=== PATIENT | male | born 1940 | race Caucasian/White ===

== ENCOUNTER 2016-07-04 10:19 | Emergency (ER) | payer OTHER, BC ==
[~2016-07-04] VITALS: Ht 185.4 cm; Wt 96.6 kg
[2016-07-04 10:24] VITALS: TEMP 36.8; Ht 185.4 cm; Wt 96.6 kg
[2016-07-04] MEDS ORDERED: SODIUM CHLORIDE 0.9% 1000ML 1,000 ML IV STA (10:37)
[2016-07-04] MEDS ORDERED: SODIUM CHLORIDE 0.9% 500ML 500 ML IV STA (10:37)
--- NOTE | 2016-07-04 10:46 | EMERGENCY ROOM VISIT NOTE ---
History Report prepared by Lucy: Brandon Clifton Under the Supervision of: Dr. Elise Piedra M.D. First contact with patient: 10:34 Chief Complaint: SYNCOPE (NEAR SYNCOPE) Stated Complaint: SLEEPINESS, FAINTING History of Present Illness The patient is a 75 year old male who presents to the Emergency Room following a syncopal episode that occurred last night, several hours prior to arrival. The patient states that he was fasting for a tooth extraction that was to take place today. 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 He is still experiencing pain from the tooth. He notes that prior to the syncopal episode lat night he was seated at his dining room table feeling "miserable" due to his tooth pain. When he stood up he did not make it out of the dining room before falling to the floor. His notes that she found the patient seated against the wall. He denies any traumatic impact to his head. The patient is currently taking Ibuprofen and Tylenol for his pain. He is on Aspirin chronically as a blood thinner. 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 A total of 10 systems reviewed and were otherwise negative. Past Medical & Surgical Medical Problems: (1) Psoriasis Hypertension Hypercholesterolemia Family History Hypertension Social History Smoking Status: Never Smoker Drug Use: none Marital Status: Housing Status: lives with significant other Occupation Status: retired Current/Historical Medications Scheduled Aspirin (Aspir-81), 1 TAB PO DAILY Cholecalciferol (Vitamin D3), 1 TAB PO DAILY Coenzyme Q10 (Ubidecarenone) (Co Q-10), 150 MG PO DAILY Fenofibrate (Tricor), 48 MG PO DAILY Levothyroxine Sodium (Levothyroxine Sodium), 1 TAB PO DAILY Melatonin (Kp Melatonin), 1 TAB PO HS Methylcellulose (Laxative) (Citrucel), 1 TAB PO BID Polyethylene Glycol 3350 (Miralax), 17 GM PO DAILY Ramipril (Ramipril), 1 CAP PO DAILY Allergies Coded Allergies: Cephalexin (Unverified Allergy, Severe, ., 07/04/16) Physical Exam Vital Signs Date Time Temp Pulse Resp B/P Pulse Ox O2 Delivery O2 Flow Rate FiO2 07/04/16 13:02 62 16 145/83 96 07/04/16 11:33 47 07/04/16 11:29 52 16 139/71 98 Room Air 57 153/71 63 147/65 07/04/16 10:24 36.8 58 20 161/77 96 Room Air Physical Exam Vital signs reviewed. General: Well-appearing elderly, in no significant distress. HEENT: No scleral icterus, PERRLA, neck supple. Atraumatic. Dry mucous membranes. Cardiovascular: Regular rate and rhythm, no extra sounds. Pulmonary: Clear to auscultation bilaterally, normal work of breathing. Abdomen: Soft, nontender, nondistended, positive bowel sounds. Musculoskeletal: Atraumatic, no peripheral edema. Neurologic: Patient awake alert and oriented x 3, full strength in all 4 extremities. Cranial nerves 2 through 12 grossly intact. Skin: Warm, dry, no rash Medical Decision & Procedures ER Provider Diagnostic Interpretation: Radiology results as stated below per my review and radiologist interpretation: CHEST ONE VIEW PORTABLE CLINICAL HISTORY: syncope SLEEPINESS COMPARISON STUDY: No previous studies for comparison. FINDINGS: The chest has an emphysematous configuration. The heart is at the upper limits of normal in size. There is no failure. There is no focal pulmonary consolidation.[ No pleural effusions are visualized. IMPRESSION: No active disease in the chest. Electronically signed by: Popeye Goodman M.D. 07/04/2016 11:13 AM Dictated Date/Time: 07/04/2016 11:13 AM Laboratory Results 07/04/16 11:13 Red Blood Count 4.85, Mean Corpuscular Volume 92.2, Mean Corpuscular Hemoglobin 30.3, Mean Corpuscular Hemoglobin Concent 32.9, Mean Platelet Volume 12.2, Neutrophils (%) (Auto) 68.5, Lymphocytes (%) (Auto) 15.8, Monocytes (%) (Auto) 13.7, Eosinophils (%) (Auto) 1.6, Basophils (%) (Auto) 0.2, Neutrophils # (Auto ) 6.47, Lymphocytes # (Auto) 1.49, Monocytes # (Auto) 1.29, Eosinophils # (Auto ) 0.15, Basophils # (Auto) 0.02 07/04/16 11:13 Test 07/04/16 11:13 07/04/16 11:18 White Blood Count 9.44 K/uL (4.8-10.8) Red Blood Count 4.85 M/uL (4.7-6.1) Hemoglobin 14.7 g/dL (14.0-18.0) Hematocrit 44.7 % (42-52) Mean Corpuscular Volume 92.2 fL (80-100) Mean Corpuscular Hemoglobin 30.3 pg (25-34) Mean Corpuscular Hemoglobin Concent 32.9 g/dl (32-36) Platelet Count 168 K/uL (130-400) Mean Platelet Volume 12.2 fL (7.4-10.4) Neutrophils (%) (Auto) 68.5 % Lymphocytes (%) (Auto) 15.8 % Monocytes (%) (Auto) 13.7 % Eosinophils (%) (Auto) 1.6 % Basophils (%) (Auto) 0.2 % Neutrophils # (Auto) 6.47 K/uL (1.4-6.5) Lymphocytes # (Auto) 1.49 K/uL (1.2-3.4) Monocytes # (Auto) 1.29 K/uL (0.11-0.59) Eosinophils # (Auto) 0.15 K/uL (0-0.5) Basophils # (Auto) 0.02 K/uL (0-0.2) RDW Standard Deviation 46.4 fL (36.4-46.3) RDW Coefficient of Variation 13.9 % (11.5-14.5) Immature Granulocyte % (Auto) 0.2 % Immature Granulocyte # (Auto) 0.02 K/uL (0.00-0.02) Anion Gap 7.0 mmol/L (3-11) Est Creatinine Clear Calc Drug Dose 47.3 ml/min Estimated GFR () 47.5 Estimated GFR (Non- 40.9 BUN/Creatinine Ratio 17.6 (10-20) Calcium Level 8.6 mg/dl (8.5-10.1) Magnesium Level 2.4 mg/dl (1.8-2.4) Total Bilirubin 1.0 mg/dl (0.2-1) Direct Bilirubin 0.2 mg/dl (0-0.2) Aspartate Amino Transf (AST/SGOT) 27 U/L (15-37) Alanine Aminotransferase (ALT/SGPT) 29 U/L (12-78) Alkaline Phosphatase 48 U/L (45-117) Total Creatine Kinase 576 U/L (39-308) Creatine Kinase MB 3.2 ng/ml (0.5-3.6) Creatine Kinase MB Ratio 0.6 (0-3.0) Total Protein 6.7 gm/dl (6.4-8.2) Albumin 3.5 gm/dl (3.4-5.0) Bedside Troponin I 0.040 ng/ml (0-0.045) Laboratory results per my review. Medications Administered Medications (Trade) Dose Ordered Sig/Luis Alberto Route Start Time Stop Time Status Last Admin Dose Admin Sodium Chloride 500 ml @ 999 mls/hr Q31M STAT IV 07/04/16 10:37 07/04/16 11:07 DC 07/04/16 11:20 999 MLS/HR Sodium Chloride (Nss 1000ml) 1,000 ml @ 150 mls/hr Q6H40M STAT IV 07/04/16 10:37 07/04/16 13:33 DC 07/04/16 11:20 150 MLS/HR ECG Indication: syncope Rate (beats per minute): 53 Rhythm: sinus bradycardia Findings: no acute ischemic change, no ectopy ED Course 1037: Past medical records reviewed. The patient was evaluated in room C7. A complete history and physical examination was performed. 1038: Ordered Sodium Chloride 1000 mL @ 150 mL/hr IV, Sodium Chloride 500 mL @ 999 mL/hr IV. 1225: Upon reevaluation, the patient appeared to have improvement of his symptoms. I discussed findings with him. He verbalized agreement of the treatment plan. The patient was discharged home. Medical Decision The patient's history was concerning for syncope. Differential diagnosis: Etiologies such as vasovagal event, infection, hypoglycemia, electrolyte abnormalities, cardiac sources, intracerebral event, toxicologic, neurologic, as well as others were entertained. This patient was evaluated and appeared to be in no significant distress. IV access was obtained and laboratory work was drawn. The patient was placed on the teletypesetter monitor and found to be in a normal sinus rhythm. He was hydrated with normal saline solution. Orthostatics are negative. Laboratory work reveals a stable H&H. Patient has some chronic renal insufficiency. Chest x- ray is clear, EKG reveals a normal sinus rhythm without acute ischemia. Patient will return to the ER for worsening of symptoms or any medical concerns. Impression Primary Impression: Syncope Scribe Attestation The scribe's documentation has been prepared under my direction and personally reviewed by me in its entirety. I confirm that the note above accurately reflects all work, treatment, procedures, and medical decision making performed by me. Departure Information Dispostion Home / Self-Care Referrals No Doctor, Assigned (PCP) Forms HOME CARE DOCUMENTATION FORM, IMPORTANT VISIT INFORMATION Patient Instructions My [facility] Additional Instructions Diagnosis: Orthostatic syncope Drink plenty of clear fluids. Resume your diet as tolerated. Contact Dr. Aguiar to reschedule your dental work. Return to the ER for worsening of symptoms or any medical concerns.
[2016-07-04] MEDS ORDERED: CHOL1000 PO (10:52)
[2016-07-04] MEDS ORDERED: ASPI-232 PO (10:52)
[2016-07-04] MEDS ORDERED: LEVO88TA3 PO (10:52)
[2016-07-04] MEDS ORDERED: MELA1TAB5 PO (10:52)
[2016-07-04] MEDS ORDERED: FENO48TA9 PO (10:52)
[2016-07-04] MEDS ORDERED: RAMI10CA PO (10:52)
[2016-07-04] MEDS ORDERED: METH500T3 PO (10:52)
[2016-07-04] MEDS ORDERED: COEN150C PO (10:52)
[2016-07-04] MEDS ORDERED: POLY335019 PO (10:52)
--- NOTE | 2016-07-04 11:15 | DIAGNOSTIC IMAGING REPORT ---
CHEST ONE VIEW PORTABLE CLINICAL HISTORY: syncope SLEEPINESS COMPARISON STUDY: No previous studies for comparison. FINDINGS: The chest has an emphysematous configuration. The heart is at the upper limits of normal in size. There is no failure. There is no focal pulmonary consolidation.[ No pleural effusions are visualized. IMPRESSION: No active disease in the chest. Electronically signed by: Popeye Goodman M.D. 07/04/2016 11:13 AM Dictated Date/Time: 07/04/2016 11:13 AM
[2016-07-04 11:37] LABS: BASO % 0.2 %; BASO ABS # 0.02 K/uL (0-0.2); COMPLETE YES; EOS % 1.6 %; HEMATOCRIT 44.7 % (42-52); IG% 0.2 %; LYMPH % 15.8 %; LYMPH ABS # 1.49 K/uL (1.2-3.4); MEAN CELL VOLUME 92.2 fL (80-100); MEAN CORPUSCULAR HEMOGLOBIN 30.3 pg (25-34); MEAN CORPUSCULAR HGB CONC 32.9 g/dl (32-36); MEAN PLATELET VOLUME 12.2 fL (7.4-10.4); MONO % 13.7 %; NEUT % 68.5 %; PLATELET COUNT 168 K/uL (130-400); RED BLOOD COUNT 4.85 M/uL (4.7-6.1); WHITE BLOOD COUNT 9.44 K/uL (4.8-10.8)
[2016-07-04 12:05] LABS: BUN/CREATININE RATIO 17.6 (10-20); CALCIUM 8.6 mg/dl (8.5-10.1); CREATININE 1.6 mg/dl (0.60-1.40); MAGNESIUM 2.4 mg/dl (1.8-2.4); POTASSIUM 4.2 mmol/L (3.5-5.1)
[2016-07-04 12:11] LABS: CKMB/CK RATIO 0.6 (0-3.0)
[2016-07-04 13:02] VITALS: BP 145/83; PULSE 62; O2SAT 96
== END 2016-07-04 13:05 | disposition home or self-care (01) ==
LOC: C.EDB 10:21 → C.EDC 13:05
DX: R55 Syncope and collapse (principal); Z79.82 Long term (current) use of aspirin; L40.9 Psoriasis, unspecified; Z82.49 Family history of ischemic heart disease and other diseases of the circulatory system; Z79.899 Other long term (current) drug therapy

== ENCOUNTER 2021-08-19 01:59 | Inpatient (IN) ==
[2021-08-19] MEDS ORDERED: SODIUM CHLORIDE 0.9% 500 ML IV SCH (02:30)
[2021-08-19 02:48] LABS: Basophils # (auto) 0.02 K/uL (0-0.2); Basophils % (auto) 0.2 %; Eosinophils # (auto) 0.05 K/uL (0-0.5); Eosinophils % (auto) 0.5 %; Hematocrit (blood only) 40.9 % (42-52); Immature Granulocytes # (auto) 0.03 K/uL (0.00-0.02); Immature Granulocytes % (auto) 0.3 %; Lymphocytes # (auto) 0.88 K/uL (1.2-3.4); Lymphocytes % (auto) 8.2 %; Mean Corpuscular Hemoglobin 32.1 pg (25-34); Mean Corpuscular Hgb Conc 34.2 g/dL (32-36); Mean Corpuscular Volume 93.8 fL (80-100); Mean Platelet Volume 12.9 fL (7.4-10.4); Monocytes # (auto) 0.99 K/uL (0.11-0.59); Monocytes % (auto) 9.2 %; Neutrophils # (auto) 8.75 K/uL (1.4-6.5); Neutrophils % (auto) 81.6 %; Platelet Count 168 K/uL (130-400); RDW Coefficient of Variation 13.7 % (11.5-14.5); RDW Standard Deviation 47.2 fL (36.4-46.3); Red Blood Count 4.36 M/uL (4.7-6.1); White Blood Count 10.72 K/uL (4.8-10.8)
[2021-08-19 03:12] LABS: Albumin Globulin Ratio 1.5 (0.9-2); BUN Creatinine Ratio 17.6 (10-20); Bilirubin,Total 0.8 mg/dl (0.2-1.0); Calcium 9.2 mg/dl (8.5-10.1); Creatinine Clr Calc Pharmacy 57.7 ml/min; Est GFR (African American) 65.5 ml/min; Est GFR (Non-African American) 56.5 ml/min; Globulin 2.6 gm/dl (2.5-4.0); Magnesium 2.1 mg/dl (1.7-2.4); Total Protein 6.6 gm/dl (6.0-8.3)
[2021-08-19 03:16] LABS: Thyroid Stimulating Hormone 9.011 uIu/ml (0.300-4.500)
[2021-08-19 03:28] LABS: Lyme Ab IgG w/WB Rflx Negative (Negative); Lyme Ab IgM w/WB Rflx Negative (Negative)
--- NOTE | 2021-08-19 03:34 | Emergency Department Note ---
History of Present Illness General Chief complaint: Syncope Stated complaint: Syncope, Vomiting Time Seen by Provider: 08/19/21 02:05 History of Present Illness This 80-year-old presents to the ER complaining of chest discomfort and not feeling well nausea vomiting and syncope Location: Generalized Quality: Not feeling well Severity: moderate Duration: tonight Timing: tonight Context: Patient passed out and family called EMS Modifying factors: better with rest; worse with activity Patient states he felt fine all day. He got up to go the bathroom was on the toilet felt nauseous vomited and passed out. He said intermittent chest pain and not feeling well since. Patient denies abdominal pain, fevers, flulike illness, prior heart disease Home Medications Medication Instructions Recorded Confirmed Type cholecalciferol (vitamin D3) 25 2,000 unit PO QAM 09/23/18 08/19/21 History mcg (1,000 unit) capsule (Vitamin D3) coenzyme Q10 100 mg capsule 100 mg PO QAM 09/23/18 08/19/21 History (CoQ-10) melatonin 3 mg tablet 3 mg PO HS 09/23/18 08/19/21 History ramipril 10 mg capsule 10 mg PO QAM cap 04/20/19 08/19/21 History cyanocobalamin (vitamin B-12) 1,000 mcg PO QAM tab 10/28/19 08/19/21 History 1,000 mcg tablet (Vitamin B-12) ibuprofen 200 mg tablet (Motrin IB) 400 mg PO BID PRN tab 10/28/19 08/19/21 History albuterol sulfate 90 mcg/actuation 2 puff INHALATION Q4 PRN 08/19/21 08/19/21 History aerosol inhaler diclofenac sodium 1 % topical gel 2 g TOPICAL BID 08/19/21 08/19/21 History fenofibrate nanocrystallized 48 mg 48 mg PO DAILY 08/19/21 08/19/21 History tablet levothyroxine 100 mcg tablet 100 mcg PO DAILYBB 08/19/21 08/19/21 History magnesium 100 mg tablet 100 mg PO DAILY 08/19/21 08/19/21 History phenazopyridine 95 mg tablet 95 mg PO UD 08/19/21 08/19/21 History triamcinolone acetonide 0.1 % 1 applic TOPICAL BID PRN 08/19/21 08/19/21 History topical cream turmeric root extract 1,053 mg 1,076 mg PO DAILY 08/19/21 08/19/21 History tablet Allergies Allergy/AdvReac Type Severity Reaction Status Date / Time cephalexin Allergy Severe Swollen Verified 08/19/21 02:29 Lips tamsulosin [From Flomax] Allergy Severe Swollen Verified 08/19/21 02:29 Lip alfuzosin Allergy Unknown LIPS Verified 08/19/21 06:04 SWELLED Past Med/Surg History Medical History Chronic obstructive pulmonary disease "MILD" Hx of chronic kidney disease Hyperlipemia Hypertension Hypothyroidism Mitral valve prolapse Mild, posterior, per 2015 echo. Osteoarthritis of both knees Prostate cancer Diagnosed 07/06/18 - [facility] 4+4, 4+3 Psoriasis Psoriatic arthritis Sleep apnea DOES NOT USE ANY DEVICE Surgical History History of cardiac catheterization 2004 - nonobstructive CAD History of vasectomy 1979 Hx of nasal septoplasty Family History Mother , Passed age 89 of Alzheimers Disease No problems noted. Father , Passed age 67 of CHF No problems noted. Brother , Passed age 77 of of complications from quadraplegia No problems noted. Daughter No problems noted. Daughter No problems noted. Son No problems noted. 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 Other Information That Helps Us Care for You: No Feels Safe at Home: Yes Safety Concerns: Feels Safe At This Time Childhood Exposure to Second-Hand Smoke: No Diet Comment: Avoids wheat caffeine: Yes (Rare Occasoinal - tries to avoid ) during the past year weight has: decreased > 10 lbs Dental Care, Regularly: Yes Assistive Devices: None Review of Systems A total of 10 systems reviewed and were otherwise negative Physical Exam Vital Signs Vital Signs - 24 hr 08/19/21 02:30 08/19/21 03:00 Temperature 37.1 C 37.2 C Temperature Source Oral Oral Pulse Rate 70 Pulse Rate [Apical] 70 Pulse Rhythm Regular Pulse Rhythm [Apical] Regular Pulse Strength Normal Pulse Strength [Apical] Normal Respiratory Rate 18 18 Respiratory Effort / Characteristics Non-Labored Spontaneous Non-Labored Spontaneous Respiratory Depth Normal Normal Respiratory Pattern Regular Regular Blood Pressure 150/82 H Blood Pressure [Right Arm] 150/82 H Blood Pressure Mean 104 Blood Pressure Mean [Right Arm] 104 Blood Pressure Position Lying Blood Pressure Position [Right Arm] Lying Pulse Oximetry 97 97 Oxygen Delivery Method Room Air Room Air Sepsis Recent Fever Within 48 Hours No Sepsis New/Unexplained Change in Mental Status No Sepsis Action Taken by Nursing No Action Required VITALS: Vitals are noted on the nurse's note and reviewed by myself. Vital signs bradycardic. GENERAL: Elderly male pale appearing SKIN: The skin was without rashes, erythema, edema, or bruising. There is no tenting of the skin. Capillary reflex less than 2 seconds. HEAD: Normocephalic atraumatic. EARS: External auditory canals clear, EYES: Pupils equal round and reactive to light and accommodation. Conjunctivae without injection, sclerae without icterus. Extraocular movements intact. NOSE: Patent, turbinates without inflammation or discharge. MOUTH: Mucous membranes moist. Pharynx without erythema or exudate. Uvula midline. Airway patent. Tongue does not deviate. NECK: Supple without nuchal rigidity. No lymphadenopathy. No thyromegaly. Cervical spine is nontender. No JVD. HEART: Bradycardic rate and rhythm LUNGS: Clear to auscultation bilaterally without wheezes, rales or rhonchi. No retractions or accessory muscle use. ABDOMEN: Positive bowel sounds x 4. Normal tympanic percussion. Soft, nontender, without masses or organomegaly. Barcenas sign negative. No guarding or rebound tenderness. No CVA tenderness MUSCULOSKELETAL: No muscle atrophy, erythema, or edema noted. NEURO: Patient was alert and oriented to person place and time. Normal sensation to light and sharp touch. No focal neurological deficits. Course Administered Medications Cyanocobalamin (Cyanocobalamin (B-12) 500 Mcg Tablet) 1,000 mcg PO [facility] Stop: 09/18/21 08:59 Last Admin: 08/19/21 09:51 Dose: 1,000 mcg Documented by: [id number] Diclofenac Sodium (Diclofenac Sod 1% Gel 100 Gm Tube) 2 gm EXT BID [facility]; Protocol Stop: 09/18/21 08:59 Last Admin: 08/19/21 21:48 Dose: 2 gm Documented by: [id number] Admin: 08/19/21 09:53 Dose: 2 gm Documented by: [id number] Enoxaparin Sodium (Enoxaparin Inj 40 Mg/0.4 Ml Syr) 40 mg SQ QAM [facility] Stop: 09/18/21 08:59 Last Admin: 08/19/21 09:52 Dose: 40 mg Documented by: [id number] Fenofibrate (Fenofibrate Nanocrystallized 48 Mg Tablet) 48 mg PO DAILY [facility] Stop: 09/18/21 08:59 Last Admin: 08/19/21 09:51 Dose: 48 mg Documented by: [id number] Levothyroxine Sodium (Levothyroxine Sodium 100 Mcg Tablet) [facility] Stop: 09/18/21 06:29 Last Admin: 08/19/21 06:25 Dose: 100 mcg Documented by: [id number] Melatonin (Melatonin 3 Mg Tab) 3 mg PO [facility] Stop: 09/18/21 20:59 Last Admin: 08/19/21 21:47 Dose: 3 mg Documented by: [id number] Morphine Sulfate (Morphine Sulfate 2 Mg/Ml Carp) 2 mg IV Q3H PRN PRN Reason: Pain Stop: 09/02/21 05:56 Last Admin: 08/19/21 12:18 Dose: 2 mg Documented by: [id number] Admin: 08/19/21 06:24 Dose: 2 mg Documented by: [id number] Tramadol HCl (Tramadol Hcl 50 Mg Tablet) 25 - 50 mg PO Q4H PRN PRN Reason: Pain Stop: 09/18/21 05:56 Last Admin: 08/19/21 13:40 Dose: 50 mg Documented by: [id number] Discontinued Medications Sodium Chloride (Nss) 500 mls @ 999 mls/hr IV .Q31M [facility] Stop: 08/19/21 03:00 Last Infusion: 08/19/21 03:17 Dose: 0 mls/hr Documented by: [id number] Admin: 08/19/21 02:45 Dose: 999 mls/hr Documented by: [id number] Lactated Ringer's (Lr) 1,000 mls @ 60 mls/hr IV .[id number] STA Stop: 08/19/21 20:37 Last Infusion: 08/19/21 23:45 Dose: 0 mls/hr Documented by: [id number] Admin: 08/19/21 06:25 Dose: 60 mls/hr Documented by: [id number] Ioversol (Optiray 320 125ml) 120 ml IV ONCE ONE Stop: 08/19/21 04:47 Last Admin: 08/19/21 04:39 Dose: 120 ml Documented by: [id number] Medical Decision Making Medical Records Attestation: I reviewed the patient's medical records. Home Medications Current Medication List: was personally reviewed by me Laboratory Data Attestation: I reviewed the patient's lab results. Result diagrams: 08/19/21 02:30 08/19/21 02:30 Lab Results 08/19/21 08/19/21 08/19/21 Range/Units 02:30 02:30 02:30 WBC 10.72 (4.8-10.8) K/uL RBC 4.36 L (4.7-6.1) M/uL Hgb 14.0 (14.0-18.0) g/dL Hct 40.9 L (42-52) % MCV 93.8 (80-100) fL MCH 32.1 (25-34) pg MCHC 34.2 (32-36) g/dL RDW Std Deviation 47.2 H (36.4-46.3) fL RDW Coeff of Asha 13.7 (11.5-14.5) % Plt Count 168 (130-400) K/uL MPV 12.9 H (7.4-10.4) fL Immature Gran % (Auto) 0.3 % Neut % (Auto) 81.6 % Lymph % (Auto) 8.2 % Bowie % (Auto) 9.2 % Eos % (Auto) 0.5 % Baso % (Auto) 0.2 % Neut # (Auto) 8.75 H (1.4-6.5) K/uL Lymph # (Auto) 0.88 L (1.2-3.4) K/uL Bowie # (Auto) 0.99 H (0.11-0.59) K/uL Eos # (Auto) 0.05 (0-0.5) K/uL Baso # (Auto) 0.02 (0-0.2) K/uL Immature Gran # (Auto) 0.03 H (0.00-0.02) K/uL Sodium 140 (136-145) mmol/L Potassium 4.0 (3.5-5.1) mmol/L Chloride 106 (98-107) mmol/L Carbon Dioxide 25 (21-32) mmol/L Anion Gap 9 (3-11) BUN 21 (6-23) mg/dl Creatinine 1.19 (0.6-1.4) mg/dl Est Cr Clr Drug Dosing 57.7 ml/min Est GFR ( Amer) 65.5 ml/min Est GFR (Non-Af Amer) 56.5 ml/min BUN/Creatinine Ratio 17.6 (10-20) Glucose 125 H (70-99(Fasting)) mg/dl Calcium 9.2 (8.5-10.1) mg/dl Magnesium 2.1 (1.7-2.4) mg/dl Total Bilirubin 0.8 (0.2-1.0) mg/dl AST 21 (13-39) U/L ALT 18 (7-52) U/L Alkaline Phosphatase 67 (34-104) U/L Total Creatine Kinase 251 H (30-223) U/L Troponin I High Sens 21.0 H (0-20) pg/ml Total Protein 6.6 (6.0-8.3) gm/dl Albumin 4.0 (3.4-5.0) gm/dl Globulin 2.6 (2.5-4.0) gm/dl Albumin/Globulin Ratio 1.5 (0.9-2) TSH 9.011 H (0.300-4.500) uIu/ml Free T4 0.89 (0.61-1.60) ng/dl Lyme Disease IgG Ab (Negative) Lyme Disease IgM Ab (Negative) SARS-CoV-2, RNA, NAAT (NEGATIVE) 08/19/21 08/19/21 Range/Units 02:30 02:30 WBC (4.8-10.8) K/uL RBC (4.7-6.1) M/uL Hgb (14.0-18.0) g/dL Hct (42-52) % MCV (80-100) fL MCH (25-34) pg MCHC (32-36) g/dL RDW Std Deviation (36.4-46.3) fL RDW Coeff of Asha (11.5-14.5) % Plt Count (130-400) K/uL MPV (7.4-10.4) fL Immature Gran % (Auto) % Neut % (Auto) % Lymph % (Auto) % Bowie % (Auto) % Eos % (Auto) % Baso % (Auto) % Neut # (Auto) (1.4-6.5) K/uL Lymph # (Auto) (1.2-3.4) K/uL Bowie # (Auto) (0.11-0.59) K/uL Eos # (Auto) (0-0.5) K/uL Baso # (Auto) (0-0.2) K/uL Immature Gran # (Auto) (0.00-0.02) K/uL Sodium (136-145) mmol/L Potassium (3.5-5.1) mmol/L Chloride (98-107) mmol/L Carbon Dioxide (21-32) mmol/L Anion Gap (3-11) BUN (6-23) mg/dl Creatinine (0.6-1.4) mg/dl Est Cr Clr Drug Dosing ml/min Est GFR ( Amer) ml/min Est GFR (Non-Af Amer) ml/min BUN/Creatinine Ratio (10-20) Glucose (70-99(Fasting)) mg/dl Calcium (8.5-10.1) mg/dl Magnesium (1.7-2.4) mg/dl Total Bilirubin (0.2-1.0) mg/dl AST (13-39) U/L ALT (7-52) U/L Alkaline Phosphatase (34-104) U/L Total Creatine Kinase (30-223) U/L Troponin I High Sens (0-20) pg/ml Total Protein (6.0-8.3) gm/dl Albumin (3.4-5.0) gm/dl Globulin (2.5-4.0) gm/dl Albumin/Globulin Ratio (0.9-2) TSH (0.300-4.500) uIu/ml Free T4 (0.61-1.60) ng/dl Lyme Disease IgG Ab Negative (Negative) Lyme Disease IgM Ab Negative (Negative) SARS-CoV-2, RNA, NAAT NEGATIVE (NEGATIVE) Imaging Data Attestation: I personally reviewed and interpreted this imaging study as follows: MDM Narrative Prior records/ancillary studies reviewed. Triage Nursing notes reviewed. Additional history obtained from family. The patient's history was concerning for syncope. Differential diagnosis: Etiologies such as vasovagal event, infection, hypoglycemia, electrolyte abnor malities, cardiac sources, intracerebral event, toxicologic, neurologic, as well as others were entertained. Physical examination: As above ER treatment provided: IV hydration with normal saline On reassessment the patient felt better. An order was placed for continuous cardiac monitoring. The monitor shows a rate of 30-80 with a heart block sinus rhythm. Diagnostics interpretation by me: ECG: Ordered for chest pain EKG: Normal QRS, type II heart block. Left axis deviation, MT progression until dropped beat consistent with type II heart block per my interpretation. The labs revealed minimally elevated troponin. Imaging studies: Chest x-ray with no acute consolidation, pneumothorax or free air per my interpretation [facility] Patient: BROCK MCINTOSH (Male) : 36 Status: ER Date: 08/19/21 04:46 Room #: History:J SYNCOPE , NAUSEA , CHEST PAIN , EVAL FOR PE , 120 ML OPTIRAY 320 Slices: [id number] Priors: Tech: Reno Everett @ [id number] Exams: CT HEAD, CT C SPINE, CTA CHEST C Contrast: IV Amt: 120 ML Accession Numbers: [id number] Referring Physician: REFERRED SELF Preliminary Findings Only See Final Report For Complete Findings CT HEAD: No acute intracranial abnormality. Senescent changes. If there is further concern, consider MRI. CT C SPINE: No evidence of acutely displaced fracture or dislocation within the cervical spine. Degenerative changes. If there is further concern, consider MRI. CTA CHEST: Mildly limited evaluation due to motion artifact. No evidence of pulmonary emboli within the pulmonary flow tract or proximal branches. Dependent atelectasis. No acute findings along the aorta. Radiologist: Ismael Lancaster MD Consultation: A consultation was placed with cardiology, Dr. Funez. The case was discussed and diagnostics were reviewed. He recommends medical admission and he will evaluate for possible pacemaker in the morning. Hospitalist was consulted. The patient was evaluated in the ER for further treatment. This appears to be consistent with symptomatic heart block. Patient's heart rate when he initially arrived was in the 30s up to the high 50s. He was pale and not feeling well. He has having chest pain with his heart rate was in the 30s. He improved with some IV fluids and the heart rate was in the 50s. Her morning was concerning for a type II heart block. Pacer pads were placed. Medicine and cardiology were consulted. Patient will be admitted. By the evaluation outlined above emergent etiologies such as infection, hypoglycemia, electrolyte abnormalities, intracerebral event, toxicologic, neurologic,as well as others were deemed relatively unlikely. The pt informed about the findings as listed above. All questions were answered and pleased with the treatment. The chart was completed utilizing [employer] Speech voice recognition software. Grammatical errors, random word insertions, pronoun errors, and incomplete sentences are an occassional consequence of this system due to software limitations, ambient noise, and hardware issues. Any formal questions or concerns about the content, text, or information contained within the body of this dictation should be directly addressed to the physician assistant project engineer for c larification. Impression & Plan Symptomatic bradycardia, HB (heart block), Syncope Discharge Plan Visit Data Chief Complaint: Syncope Stated Complaint: Syncope, Vomiting ED Provider: Silvino Pinedo ED Midlevel Provider: Cheryl Lr Discharge Problem: Symptomatic bradycardia, HB (heart block), Syncope Patient Disposition: Admitted As Inpatient Condition: Fair Discharge Instructions Interventions: ED Discharge Assessment Last Done: 08/19/21 05:36
--- NOTE | 2021-08-19 03:38 | History & Physical Report ---
Date of Service August 19, 2021 Assessment & Plan (1) Symptomatic bradycardia: Plan: Pleuritic chest pain with troponin elevation rule out PE hx nonocclusive CAD COPD, not in acute exacerbation hypertension, slight elevated hyperlipidemia on statin Rx hypothyroidism, euthyroid as of today's TSH BPH/ prostate cancer status post radiation. Hyperglycemia rule out DM Cardiology consult Re: Symptomatic bradycardia ER provider already in touch with Dr. Funez who recommends ICU monitoring and TTE. N.p.o. until patient evaluated by cardiology in anticipation of any procedure. External pacer pads on, pace for symptomatic bradycardia CT chest PE study Check hemoglobin A1c DVT prophylaxis. Lovenox subcu Full code Patient son requesting updates from providers. Mr. Jesus Tejeda, contact #[phone]. Text document was generated using Qraved voice recognition software. It may contain grammatical or spelling errors. Kindly contact undersigned for clarification of any documentation item in question. History of Present Illness Chief Complaint: Syncope Primary Care Provider: Tomas Santoyo, History obtained from patient, family, and records. Medical history significant for nonocclusive CAD, COPD, hypertension, hyperlipidemia, hypothyroidism, BPH, prostate cancer status post radiation. Patient woke up after midnight having the urge to move his bowels. Diarrhea symptoms attributed to [place] food dinner last night. Patient felt nauseous and lightheaded while on the commode. No unusual straining. Subsequent unwitnessed syncopal event. No tongue biting, no urinary incontinence. Thud from patient's room heard by patient's son who was visiting from [place], [place]. Patient found by son on the bathroom floor vomiting. Patient denies headache, belly pain. EMS alerted by son. Patient noted sharp pleuritic pain with some shortness of breath on the way to the hospital. Heart rate 30s and second-degree AV block on EKG at the ER as per ED provider. Medical History as above Outpatient stress echo was done for presyncopal episodes while walking last March 2021. Negative for inducible ischemia. EF 55 to 59%. Concentric LVH. Mild aortic valve sclerosis, mild MR. 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 Allergies Allergy/AdvReac Type Severity Reaction Status Date / Time cephalexin Allergy Severe Swollen Verified 08/19/21 02:29 Lips tamsulosin [From Flomax] Allergy Severe Swollen Verified 08/19/21 02:29 Lip alfuzosin Allergy Unknown LIPS Verified 08/19/21 06:04 SWELLED Home Medications Medication Instructions Recorded Confirmed Type cholecalciferol (vitamin D3) 25 2,000 unit PO QAM 09/23/18 08/19/21 History mcg (1,000 unit) capsule (Vitamin D3) coenzyme Q10 100 mg capsule 100 mg PO QAM 09/23/18 08/19/21 History (CoQ-10) melatonin 3 mg tablet 3 mg PO HS 09/23/18 08/19/21 History ramipril 10 mg capsule 10 mg PO QAM cap 04/20/19 08/19/21 History cyanocobalamin (vitamin B-12) 1,000 mcg PO QAM tab 10/28/19 08/19/21 History 1,000 mcg tablet (Vitamin B-12) ibuprofen 200 mg tablet (Motrin IB) 400 mg PO BID PRN tab 10/28/19 08/19/21 History albuterol sulfate 90 mcg/actuation 2 puff INHALATION Q4 PRN 08/19/21 08/19/21 History aerosol inhaler diclofenac sodium 1 % topical gel 2 g TOPICAL BID 08/19/21 08/19/21 History fenofibrate nanocrystallized 48 mg 48 mg PO DAILY 08/19/21 08/19/21 History tablet levothyroxine 100 mcg tablet 100 mcg PO DAILYBB 08/19/21 08/19/21 History magnesium 100 mg tablet 100 mg PO DAILY 08/19/21 08/19/21 History phenazopyridine 95 mg tablet 95 mg PO UD 08/19/21 08/19/21 History triamcinolone acetonide 0.1 % 1 applic TOPICAL BID PRN 08/19/21 08/19/21 History topical cream turmeric root extract 1,053 mg 1,076 mg PO DAILY 08/19/21 08/19/21 History tablet Past Med/Surg History Medical History (Updated 08/19/21 @ 06:40 by SOMMER Barraza) Chronic obstructive pulmonary disease "MILD" Hx of chronic kidney disease Hyperlipemia Hypertension Hypothyroidism Mitral valve prolapse Mild, posterior, per 2015 echo. Osteoarthritis of both knees Prostate cancer Diagnosed 07/06/18 - [place] 4+4, 4+3 Psoriasis Psoriatic arthritis Sleep apnea DOES NOT USE ANY DEVICE Surgical History History of cardiac catheterization 2004 - nonobstructive CAD History of vasectomy 1979 Hx of nasal septoplasty Family History Mother , Passed age 89 of Alzheimers Disease No problems noted. Father , Passed age 67 of CHF No problems noted. Brother , Passed age 77 of of complications from quadraplegia No problems noted. Daughter No problems noted. Daughter No problems noted. Son No problems noted. 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 [employer] Other Information That Helps Us Care for You: No Feels Safe at Home: Yes Safety Concerns: Feels Safe At This Time Childhood Exposure to Second-Hand Smoke: No Diet Comment: Avoids wheat caffeine: Yes (Rare Occasoinal - tries to avoid ) during the past year weight has: decreased > 10 lbs Dental Care, Regularly: Yes Assistive Devices: None Review of Systems Review of Systems: As per HPI, all other systems reviewed and negative Physical Exam Physical Exam: GENERAL: Comfortable, slightly anxious, pleasant, no respiratory distress SKIN: Normal color, warm HEENT: [place] palpebral conjunctivae, no ptosis, dry buccal mucosa NECK : Supple, no tenderness CHEST : CTA, no tenderness HEART : Bradycardic, no obvious murmurs ABDOMEN: Some distention, nontender EXTREMITIES : No LE swelling/tenderness, no other conspicuous deformities noted NEUROLOGIC : Coherent, no facial asymmetry, no other gross focality Results & Data Results & Data ([facility]) Vital Signs (Past 12 Hours) Vital Signs Temp Pulse Pulse Resp BP BP Pulse Ox 08/19/21 03:00 37.2 C 70 18 150/82 H 97 08/19/21 02:30 37.1 C 70 18 150/82 H 97 Laboratory Results Laboratory Results WBC 10.72 K/uL (4.8-10.8) 08/19/21 02:30 RBC 4.36 M/uL (4.7-6.1) L 08/19/21 02:30 Hgb 14.0 g/dL (14.0-18.0) 08/19/21 02:30 Hct 40.9 % (42-52) L 08/19/21 02:30 MCV 93.8 fL (80-100) 08/19/21 02:30 MCH 32.1 pg (25-34) 08/19/21 02:30 MCHC 34.2 g/dL (32-36) 08/19/21 02:30 RDW Std Deviation 47.2 fL (36.4-46.3) H 08/19/21 02:30 RDW Coeff of Asha 13.7 % (11.5-14.5) 08/19/21 02:30 Plt Count 168 K/uL (130-400) 08/19/21 02:30 MPV 12.9 fL (7.4-10.4) H 08/19/21 02:30 Immature Gran % (Auto) 0.3 % 08/19/21 02:30 Neut % (Auto) 81.6 % 08/19/21 02:30 Lymph % (Auto) 8.2 % 08/19/21 02:30 [place] % (Auto) 9.2 % 08/19/21 02:30 Eos % (Auto) 0.5 % 08/19/21 02:30 Baso % (Auto) 0.2 % 08/19/21 02:30 Neut # (Auto) 8.75 K/uL (1.4-6.5) H 08/19/21 02:30 Lymph # (Auto) 0.88 K/uL (1.2-3.4) L 08/19/21 02:30 [place] # (Auto) 0.99 K/uL (0.11-0.59) H 08/19/21 02:30 Eos # (Auto) 0.05 K/uL (0-0.5) 08/19/21 02:30 Baso # (Auto) 0.02 K/uL (0-0.2) 08/19/21 02:30 Immature Gran # (Auto) 0.03 K/uL (0.00-0.02) H 08/19/21 02:30 Sodium 140 mmol/L (136-145) 08/19/21 02:30 Potassium 4.0 mmol/L (3.5-5.1) 08/19/21 02:30 Chloride 106 mmol/L (98-107) 08/19/21 02:30 Carbon Dioxide 25 mmol/L (21-32) 08/19/21 02:30 Anion Gap 9 (3-11) 08/19/21 02:30 BUN 21 mg/dl (6-23) 08/19/21 02:30 Creatinine 1.19 mg/dl (0.6-1.4) 08/19/21 02:30 Est Cr Clr Drug Dosing 57.7 ml/min 08/19/21 02:30 Est GFR ( Amer) 65.5 ml/min 08/19/21 02:30 Est GFR (Non-Af Amer) 56.5 ml/min 08/19/21 02:30 BUN/Creatinine Ratio 17.6 (10-20) 08/19/21 02:30 Glucose 125 mg/dl (70-99(Fasting)) H 08/19/21 02:30 Calcium 9.2 mg/dl (8.5-10.1) 08/19/21 02:30 Magnesium 2.1 mg/dl (1.7-2.4) 08/19/21 02:30 Total Bilirubin 0.8 mg/dl (0.2-1.0) 08/19/21 02:30 AST 21 U/L (13-39) 08/19/21 02:30 ALT 18 U/L (7-52) 08/19/21 02:30 Alkaline Phosphatase 67 U/L (34-104) 08/19/21 02:30 Total Creatine Kinase 251 U/L (30-223) H 08/19/21 02:30 Troponin I High Sens 21.0 pg/ml (0-20) H 08/19/21 02:30 Total Protein 6.6 gm/dl (6.0-8.3) 08/19/21 02:30 Albumin 4.0 gm/dl (3.4-5.0) 08/19/21 02:30 Globulin 2.6 gm/dl (2.5-4.0) 08/19/21 02:30 Albumin/Globulin Ratio 1.5 (0.9-2) 08/19/21 02:30 TSH 9.011 uIu/ml (0.300-4.500) H 08/19/21 02:30 Lyme Disease IgG Ab Negative (Negative) 08/19/21 02:30 Lyme Disease IgM Ab Negative (Negative) 08/19/21 02:30 SARS-CoV-2, RNA, NAAT NEGATIVE (NEGATIVE) 08/19/21 02:30 Diagnostic Findings Chest x-ray as per my interpretation: Atelectasis, cardiomegaly, elevated right hemidiaphragm EKG as per my interpretation : Rate 55, sinus bradycardia, LAD, LAFB, ischemia
[2021-08-19 03:49] LABS: T4 Free Thyroxine 0.89 ng/dl (0.61-1.60)
[2021-08-19] MEDS ORDERED: LACTATED RINGER'S 1,000 ML IV STA (03:58)
[2021-08-19] MEDS ORDERED: OPTIRAY 320 125ml IV ONE (04:46)
[2021-08-19] MEDS ORDERED: ICU PROTOCOL FOR HYPERGLYCEMIA PRN (05:57)
[2021-08-19] MEDS ORDERED: traMADol HCL 50 MG TABLET PO PRN (05:57)
[2021-08-19] MEDS ORDERED: PROMETHAZINE HCL 12.5 MG in SODIUM CHLORIDE 0.9% 50 ML IV PRN (05:57)
[2021-08-19] MEDS ORDERED: ACETAMINOPHEN 325 MG TAB PO PRN (05:57)
[2021-08-19] MEDS: MoRPHine SULFATE 2 MG/ML CARP IV PRN ×2 (06:24→12:18)
[2021-08-19] MEDS: LEVOTHYROXINE SODIUM 100 MCG TABLET PO SCH (06:25)
--- NOTE | 2021-08-19 06:33 | Critical Care Consultation ---
Date of Consultation August 19, 2021 Assessment & Plan (1) Symptomatic bradycardia: Impression: 80-year-old male presents to the ICU following syncopal event and was found to be bradycardic with heart rate in the 30s to 40s. He is remained hemodynamically stable but is being admitted to ICU per cardiology request for further monitoring. Neuro - [facility] ICU: Negative Cardiac - Symptomatic bradycardiasecondary to heart block. Unsure of etiology at this time -No severe electrolyte abnormalities. Troponin unremarkable but will trend -EKG without ST elevation -Chest CTA pending -No indication for dopamine or temporary pacing at this time -Defer to cardiology in regards to need for permanent pacemaker -Continuous monitoring on telemetry in ICU for now Respiratory - History of COPDlungs clear to auscultation as of now, no symptoms of respiratory distress -Monitor for now. Continue home nebs -Continuous monitoring pulse ox GI - Heart healthy diet RENAL/LYTES - CKDcreatinine currently at baseline at 1.19. Monitor - Strict I's and O's ENDO - No history of diabetes. ICU hyperglycemic protocol Hypothyroidelevated TSH but normal T4. Continue with Synthroid HEME - H&H stable, monitor routine CBCs ID - No indication for infectious process at this time\\ Lyme negative, COVID-19 negative LINES/IV ACCESS - Peripheral IVs DVT PROPHYLAXIS - SCDs, Lovenox Thank you for allowing us to participate in the care of this patient. Please refer to my attending physician's documentation for any further recommendations. (2) HB (heart block): (3) Syncope: (4) Hypothyroid: (5) Hyperlipidemia: Supervising Physician Co-Signing Physician Notes I was advised to the patient overnight. In the morning I discussed case with Dr. Terrazas and patient is stable for downgrade and transfer out of ICU. History of Present Illness Attending Physician: Torie Ibarra DO History of Present Illness Patient is a 80-year-old female with past medical history of CKD, HTN, hypothyroid, HLD, COPD psoriasis, who presents to the emergency department after having a syncopal event where he passed out on the toilet earlier this evening. Patient stated that he was having a loose stool but was not particularly straining at the time. In the emergency department he was found to be bradycardic with heart rate in the 30s and concern for second-degree AV block. At the time patient was hemodynamically stable and asymptomatic. Cardiology was consulted and did recommend placing the patient in ICU for observation. On arrival to the ICU the patient is alert and oriented and hemodynamically stable. Heart rate appears to be regular in the low 40s. Patient was complaini ng of 2/10 right-sided chest pain which was more associated with movement. he has pending CT head, cervical spine, and CTA chest. Currently he denies any headache or dizziness, recent illness or fevers, tick bites, sore throat, chest pain or palpitations, shortness of breath, abdominal pain, nausea vomiting. He did have 1 episode of diarrhea prior to hospital arrival at the time of syncopal event. Allergies Allergy/AdvReac Type Severity Reaction Status Date / Time cephalexin Allergy Severe Swollen Verified 08/19/21 02:29 Lips tamsulosin [From Flomax] Allergy Severe Swollen Verified 08/19/21 02:29 Lip alfuzosin Allergy Unknown LIPS Verified 08/19/21 06:04 SWELLED Home Medications Medication Instructions Recorded Confirmed Type cholecalciferol (vitamin D3) 25 2,000 unit PO QAM 09/23/18 08/19/21 History mcg (1,000 unit) capsule (Vitamin D3) coenzyme Q10 100 mg capsule 100 mg PO QAM 09/23/18 08/19/21 History (CoQ-10) melatonin 3 mg tablet 3 mg PO HS 09/23/18 08/19/21 History ramipril 10 mg capsule 10 mg PO QAM cap 04/20/19 08/19/21 History cyanocobalamin (vitamin B-12) 1,000 mcg PO QAM tab 10/28/19 08/19/21 History 1,000 mcg tablet (Vitamin B-12) ibuprofen 200 mg tablet (Motrin IB) 400 mg PO BID PRN tab 10/28/19 08/19/21 History albuterol sulfate 90 mcg/actuation 2 puff INHALATION Q4 PRN 08/19/21 08/19/21 History aerosol inhaler diclofenac sodium 1 % topical gel 2 g TOPICAL BID 08/19/21 08/19/21 History fenofibrate nanocrystallized 48 mg 48 mg PO DAILY 08/19/21 08/19/21 History tablet levothyroxine 100 mcg tablet 100 mcg PO DAILYBB 08/19/21 08/19/21 History magnesium 100 mg tablet 100 mg PO DAILY 08/19/21 08/19/21 History phenazopyridine 95 mg tablet 95 mg PO UD 08/19/21 08/19/21 History triamcinolone acetonide 0.1 % 1 applic TOPICAL BID PRN 08/19/21 08/19/21 History topical cream turmeric root extract 1,053 mg 1,076 mg PO DAILY 08/19/21 08/19/21 History tablet Patient History Medical History Chronic obstructive pulmonary disease "MILD" Hx of chronic kidney disease Hyperlipemia Hypertension Hypothyroidism Mitral valve prolapse Mild, posterior, per 2015 echo. Osteoarthritis of both knees Prostate cancer Diagnosed 07/06/18 - [place] 4+4, 4+3 Psoriasis Psoriatic arthritis Sleep apnea DOES NOT USE ANY DEVICE Surgical History History of cardiac catheterization 2004 - nonobstructive CAD History of vasectomy 1979 Hx of nasal septoplasty Family History Mother , Passed age 89 of Alzheimers Disease No problems noted. Father , Passed age 67 of CHF No problems noted. Brother , Passed age 77 of of complications from quadraplegia No problems noted. Daughter No problems noted. Daughter No problems noted. Son No problems noted. 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 Other Information That Helps Us Care for You: No Feels Safe at Home: Yes Safety Concerns: Feels Safe At This Time Childhood Exposure to Second-Hand Smoke: No Diet Comment: Avoids wheat caffeine: Yes (Rare Occasoinal - tries to avoid ) during the past year weight has: decreased > 10 lbs Dental Care, Regularly: Yes Assistive Devices: None Review of Systems Review of Systems: All systems reviewed & are unremarkable except as noted in HPI & below Physical Exam Constitutional: cooperative and comfortable Eyes: PERRL, conjunctivae normal, anicteric sclerae ENMT: external ear and nose normal, oropharynx normal Neck: trachea midline, no thyromegaly Respiratory: normal respiratory effort, lungs clear to auscultation Cardiovascular: Rate/Rhythm: regular rhythm and + bradycardic Vessels: no JVD Extremities: normal capillary refill; no edema Gastrointestinal (Abdomen): normal bowel sounds, soft, nontender, no hepatosplenomegaly Musculoskeletal: no cyanosis or clubbing, extremities motor strength 5/5 Skin: no rashes, warm and dry Neurologic: PERRL, EOMI, accommodation nl, no face palsy, no dysarthria Psychiatric: A+Ox3, euthymic affect Results & Data Results & Data ([facility]) Vital Signs (Past 12 Hours) Vital Signs Temp Pulse Pulse Resp BP BP BP 08/19/21 06:02 36.4 C L 56 L 20 152/78 H 08/19/21 06:01 42 L 12 150/59 H 08/19/21 06:00 48 L 11 L 08/19/21 05:57 46 L 08/19/21 03:00 37.2 C 70 18 150/82 H 08/19/21 02:30 37.1 C 70 18 150/82 H Pulse Ox 08/19/21 06:02 97 08/19/21 06:01 98 08/19/21 06:00 100 08/19/21 05:57 08/19/21 03:00 97 08/19/21 02:30 97 Coding Level of Care Code 83730 Inpt Consult Level 4 Diagnoses Symptomatic bradycardia R00.1 HB (heart block) I45.9 Syncope R55 Hypothyroid E03.9 Hyperlipidemia E78.5
--- NOTE | 2021-08-19 07:17 | CT Scan Report ---
CT OF THE HEAD WITHOUT CONTRAST CLINICAL HISTORY: syncope COMPARISON STUDY: No previous studies for comparison. TECHNIQUE: Helical axial images of the head were obtained without IV contrast. Automated exposure con trol was utilized for the study. A dose lowering technique was utilized adhering to the principles o f ALARA. FINDINGS: No acute intracranial hemorrhage, midline shift or mass effect is present. The ventricular system is unremarkable. The basal cisterns are patent. No extra-axial collections are present. There are no findings to suggest acute dural sinus thrombosis or acute territorial infarct. No significant calvarial abnormalities are present. Visualized portions of the sinuses and mastoid air cells are milo ar. IMPRESSION: No acute intracranial findings. ACT 112: Negative or not required by law. Electronically signed by: Justino Slade M.D. 08/19/2021 7:15 AM
--- NOTE | 2021-08-19 07:22 | CT Scan Report ---
CT OF THE CERVICAL SPINE WITHOUT CONTRAST CLINICAL HISTORY: syncope, [place] COMPARISON STUDY: No previous studies for comparison. TECHNIQUE: Helical axial images of the cervical spine were obtained without IV contrast. Sagittal a nd coronal reconstructions were viewed. Automated exposure control was utilized for the study. A do se lowering technique was utilized adhering to the principles of ALARA. FINDINGS: Alignment of the cervical spine is anatomic. Vertebral body heights are maintained. No acut e cervical spine fracture or subluxation is present. There is no prevertebral edema. Facet joints are intact. Severe multilevel degenerative changes are present. Disc space narrowing is most pronounced at C6-C7. IMPRESSION: 1. No acute cervical spine fracture or subluxation. 2. Severe multilevel degenerative changes within the cervical spine. ACT 112: Negative or not required by law. Electronically signed by: Justino Slade M.D. 08/19/2021 7:20 AM
--- NOTE | 2021-08-19 07:40 | CT Scan Report ---
CT ANGIOGRAPHY OF THE CHEST, PULMONARY EMBOLUS PROTOCOL CLINICAL HISTORY: Chest pain. Syncope. Evaluate for pulmonary embolus. COMPARISON STUDY: Chest radiograph September 28, 2018. Chest radiograph August 19, 2021. TECHNIQUE: Following IV administration of 120 mL of Optiray, helical axial images of the chest were o btained utilizing the pulmonary embolus protocol. Maximal intensity projections and sagittal and cor onal reformats were viewed on an independent 3D workstation. IV contrast was administered without co mplication. Automated exposure control was utilized for the study. A dose lowering technique was ut ilized adhering to the principles of ALARA. FINDINGS: No pulmonary emboli are identified. There is no thoracic aortic dissection. Size of the he art is at the upper limits of normal. There is no pericardial effusion. No pneumothorax or pleural ef fusion is noted. There are a few small subpleural pulmonary nodules which measure up to 5 mm. These a re indeterminate but probably benign. Ground glass opacities favor atelectasis. Suspected mild underl fortino emphysema. No pneumothorax or pleural effusion is noted. There is no thoracic lymphadenopathy. N ote is made of a probable acute nondisplaced horizontal fracture through anterior osteophytes at the T2-T3 level. No extension into the posterior elements is noted. This fracture may extend into the dis c space. Moderate anterior osteophytosis is noted. There is trace prevertebral edema. IMPRESSION: 1. No pulmonary emboli identified. 2. Probable acute nondisplaced horizontal fracture through anterior osteophytes at the T2-T3 level. T his may extend into the disc space. No extension into the posterior elements identified. Stability is difficult to assess by CT. This finding will be called/faxed to ordering provider at time of dictati on. ACT 112: Negative or not required by law. Electronically signed by: Justino Slade M.D. 08/19/2021 7:37 AM
--- NOTE | 2021-08-19 08:03 | XRay Report ---
XR chest 1V portable CLINICAL HISTORY: Midsternal chest pain. COMPARISON STUDY: Chest radiograph September 28, 2018. FINDINGS: Lung volumes are normal. Lungs are clear. There is no pneumothorax or pleural effusion. Car diac size is normal. Mediastinal contours are normal. There is no evidence for pulmonary edema. There is pulmonary vascular congestion without overt pulmonary edema. IMPRESSION: Pulmonary vascular congestion without overt pulmonary edema. ACT 112: Negative or not required by law. Electronically signed by: Justino Slade M.D. 08/19/2021 8:01 AM
[2021-08-19] MEDS ORDERED: ENALAPRIL MALEATE 10 MG TAB PO SCH (09:00)
[2021-08-19] MEDS: FENOFIBRATE NANOCRYSTALLIZED 48 MG TABLET PO SCH (09:51)
[2021-08-19] MEDS: CYANOCOBALAMIN (B-12) 500 MCG TABLET PO SCH (09:51)
[2021-08-19] MEDS: ENOXAPARIN INJ 40 MG/0.4 ML SYR SQ SCH (09:52)
[2021-08-19] MEDS: DICLOFENAC SOD 1% GEL 100 GM TUBE EXT SCH ×2 (09:53→21:48)
--- NOTE | 2021-08-19 10:02 | Cardiology Consultation ---
Date of Consultation August 19, 2021 Assessment & Plan (1) Syncope: (2) Symptomatic bradycardia: (3) Chest pain: 80 year old male (1) Syncope: (2) Symptomatic bradycardia: -per review of telemetry on arrival 08/19/21 at 2:11 am, marked sinus bradycardia with sinus arrhythmia with ventricular rate of 35 bpm. -Currently in ICU SB in 40s-50s noted. Asymptomatic. He is on no AV bianka blockers at baseline. -No indication for temporary pacemaker or emergent permanent pacemaker at this time. -Stable for transfer out of ICU to PCU /telemetry. -Proceed with observation. Consideration of permanent pacemaker on 08/21/21. -Noted previous near syncope complaints dating back to January,. (3) Chest pain: EKG without ischemic changes. HS troponin normal x 2 which is reassuring. Non ischemic stress echo as outpatient Mar, 2021. Symptoms reproduced with movement and do not appear to be characteristic of angina. No PE on CTA. Per radiology report "Probable acute nondisplaced horizontal fracture through anterior osteophytes at the T2-T3 level", perhaps this is the culprit for his discomfort. Pain controlled at present. Confirmed pt's wish to be full code status. Updated diet to Gluten free / vegan. Advance activity, out of bed with assist. Updated daughter, Gilberto by phone. History of Present Illness Attending Physician: Torie Ibarra, DO History of Present Illness Marly Tejeda is a 80 year old male seen in cardiology consultation per the request of Nadia Lr PA-C of emergency medicine and Dr Oseguera for the evaluation of syncope and bradycardia. The patient has a history of prostate carcinoma diagnosed in 2019 for which she underwent brachytherapy. He has chronic ongoing issues with urinary urgency and urge incontinence with bowel movements. He partakes in a vegan diet. He states that last evening at approximately 7 PM he had a meal that consisted of a [place] vegan bowl. By 12 AM he recalls waking up with the urge to have a bowel movement and had an episode of loose stool. A few hours later around 2 AM he had another episode that he describes as being diarrhea, and while on the commode also had the urge to vomit. The patient lives alone but his son, Jesus, was visiting from out of town, and heard a thump from the bathroom and found the patient having had a loss of consciousness/fall episode from the commode. EMS was summoned, and upon arrival to the emergency department, sinus bradycardia with sinus arrhythmia at 35 bpm noted. There is concern of possible intermittent second-degree AV block, however per my review of the telemetry, I see sinus bradycardia and sinus arrhythmia, which was also noted on the EKG performed 08/19/2021 at 2:10 AM which revealed sinus bradycardia with first-degree AV block, VT interval 206 ms, marked sinus arrhythmia, age-indeterminate anteroseptal infarct pattern, which is a chronic finding for him. Patient has a history of past cardiac evaluation for chest discomfort with cardiac catheterization in 2004, without obstructive disease noted at that time. He has a history of mild mitral valve prolapse and mild mitral regurgitation. In January,, he had been seen by his primary care provider, and had described lightheadedness/near syncope while exercising and walking up a hill. He went on to have an exercise stress echocardiogram for evaluation of this in March,. The patient exercised to a moderately high workload of 6 minutes on a Ata protocol. Chronotropic response and EKG was normal, with noted frequent PVCs at rest that became less frequent with exercise and return to the postexercise recovery interval. There is no EKG or echocardiographic evidence of inducible ischemia. Stable mild mitral regurgitation noted at that time. Most recent cholesterol panel performed as an outpatient February, revealed LDL cholesterol level of 75 mg/dL. Allergies Allergy/AdvReac Type Severity Reaction Status Date / Time cephalexin Allergy Severe Swollen Verified 08/19/21 02:29 Lips tamsulosin [From Flomax] Allergy Severe Swollen Verified 08/19/21 02:29 Lip alfuzosin Allergy Unknown LIPS Verified 08/19/21 06:04 SWELLED Home Medications Medication Instructions Recorded Confirmed Type cholecalciferol (vitamin D3) 25 2,000 unit PO QAM 09/23/18 08/19/21 History mcg (1,000 unit) capsule (Vitamin D3) coenzyme Q10 100 mg capsule 100 mg PO QAM 09/23/18 08/19/21 History (CoQ-10) melatonin 3 mg tablet 3 mg PO HS 09/23/18 08/19/21 History ramipril 10 mg capsule 10 mg PO QAM cap 04/20/19 08/19/21 History cyanocobalamin (vitamin B-12) 1,000 mcg PO QAM tab 10/28/19 08/19/21 History 1,000 mcg tablet (Vitamin B-12) ibuprofen 200 mg tablet (Motrin IB) 400 mg PO BID PRN tab 10/28/19 08/19/21 History albuterol sulfate 90 mcg/actuation 2 puff INHALATION Q4 PRN 08/19/21 08/19/21 History aerosol inhaler diclofenac sodium 1 % topical gel 2 g TOPICAL BID 08/19/21 08/19/21 History fenofibrate nanocrystallized 48 mg 48 mg PO DAILY 08/19/21 08/19/21 History tablet levothyroxine 100 mcg tablet 100 mcg PO DAILYBB 08/19/21 08/19/21 History magnesium 100 mg tablet 100 mg PO DAILY 08/19/21 08/19/21 History phenazopyridine 95 mg tablet 95 mg PO UD 08/19/21 08/19/21 History triamcinolone acetonide 0.1 % 1 applic TOPICAL BID PRN 08/19/21 08/19/21 History topical cream turmeric root extract 1,053 mg 1,076 mg PO DAILY 08/19/21 08/19/21 History tablet Patient History Medical History Chronic obstructive pulmonary disease "MILD" Hx of chronic kidney disease Hyperlipemia Hypertension Hypothyroidism Mitral valve prolapse Mild, posterior, per 2015 echo. Osteoarthritis of both knees Prostate cancer Diagnosed 07/06/18 - [place] 4+4, 4+3 Psoriasis Psoriatic arthritis Sleep apnea DOES NOT USE ANY DEVICE Surgical History History of cardiac catheterization 2004 - nonobstructive CAD History of vasectomy 1979 Hx of nasal septoplasty Family History Mother , Passed age 89 of Alzheimers Disease No problems noted. Father , Passed age 67 of CHF No problems noted. Brother , Passed age 77 of of complications from quadraplegia No problems noted. Daughter No problems noted. Daughter No problems noted. Son No problems noted. 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 Other Information That Helps Us Care for You: No Feels Safe at Home: Yes Safety Concerns: Feels Safe At This Time Childhood Exposure to Second-Hand Smoke: No Diet Comment: Avoids wheat caffeine: Yes (Rare Occasoinal - tries to avoid ) during the past year weight has: decreased > 10 lbs Dental Care, Regularly: Yes Assistive Devices: None Review of Systems Review of Systems: All systems reviewed & are unremarkable except as noted in HPI & below Physical Exam Constitutional: WD/WN, vitals as above Respiratory: normal respiratory effort, lungs clear to auscultation Cardiovascular: Rate/Rhythm: + bradycardic Heart Sounds: normal S1 and normal S2; no murmur Extremities: no edema Chest (Breasts): Additional Comments: no chest wall tenderness on deep inspiration or with deep breaths Gastrointestinal (Abdomen): normal bowel sounds, soft, nontender, no hepatosplenomegaly Neurologic: PERRL, EOMI, accommodation nl, no face palsy, no dysarthria Results & Data ([facility]) Vital Signs (Past 12 Hours) Vital Signs Temp Pulse Pulse Resp BP BP BP 08/19/21 06:02 36.4 C L 56 L 20 152/78 H 08/19/21 06:01 42 L 12 150/59 H 08/19/21 06:00 48 L 11 L 08/19/21 05:57 46 L 08/19/21 03:00 37.2 C 70 18 150/82 H 08/19/21 02:30 37.1 C 70 18 150/82 H Pulse Ox 08/19/21 06:02 97 08/19/21 06:01 98 08/19/21 06:00 100 08/19/21 05:57 08/19/21 03:00 97 08/19/21 02:30 97 Laboratory Results Cardiac Enzymes 08/19/21 08/19/21 Range/Units 02:30 06:47 AST 21 (13-39) U/L Troponin I High Sens 21.0 H 24.2 H (0-20) pg/ml CBC 08/19/21 Range/Units 02:30 WBC 10.72 (4.8-10.8) K/uL RBC 4.36 L (4.7-6.1) M/uL Hgb 14.0 (14.0-18.0) g/dL Hct 40.9 L (42-52) % Plt Count 168 (130-400) K/uL Neut # (Auto) 8.75 H (1.4-6.5) K/uL Lymph # (Auto) 0.88 L (1.2-3.4) K/uL [place] # (Auto) 0.99 H (0.11-0.59) K/uL Eos # (Auto) 0.05 (0-0.5) K/uL Baso # (Auto) 0.02 (0-0.2) K/uL Comprehensive Metabolic Panel 08/19/21 Range/Units 02:30 Sodium 140 (136-145) mmol/L Potassium 4.0 (3.5-5.1) mmol/L Chloride 106 (98-107) mmol/L Carbon Dioxide 25 (21-32) mmol/L BUN 21 (6-23) mg/dl Creatinine 1.19 (0.6-1.4) mg/dl Glucose 125 H (70-99(Fasting)) mg/dl Calcium 9.2 (8.5-10.1) mg/dl AST 21 (13-39) U/L ALT 18 (7-52) U/L Alkaline Phosphatase 67 (34-104) U/L Total Protein 6.6 (6.0-8.3) gm/dl Albumin 4.0 (3.4-5.0) gm/dl Intake and Output 08/18/21 08/19/21 08/19/21 22:59 06:59 14:59 Intake Total 500 / 500 Output Total 275 / 275 Balance 225 / 225 Intake: IV 500 / 500 Sodium Chloride 0.9% 500 ml @ 500 / 500 999 mls/hr IV .Q31M [facility] Rx#: [id number] Output: Urine 275 / 275 Other: Weight 90.9 kg Weight Measurement Method Built in [facility]
[2021-08-19 10:56] LABS: Appearance Urine Clear (Clear); Bilirubin Urine Negative (Negative); Blood Urine Negative (Negative); Color Urine Yellow; Glucose Urine UA Negative (Negative); Ketones Urine Negative (Negative); Leukocyte Esterase Urine Negative (Negative); Nitrite Urine Negative (Negative); Protein Urine Negative (Negative); Specific Gravity Urine > 1.045 (1.000-1.030); Urobilinogen Urine Negative (Negative); pH Urine >= 9.0 (4.5-7.5)
--- NOTE | 2021-08-19 13:02 | Hospitalist Progress Note ---
Date of Service August 19, 2021 Assessment & Plan (1) Symptomatic bradycardia: Plan: Remains in sinus bradycardia monitored on telemetry. Asymptomatic at this time. Cardiology has seen patient and is preparing for pacemaker to be placed after the weekend. He was transferred out of the ICU this morning to PCU and continues to be observed. (2) Syncope: Plan: Syncopal event occurred at home after bowel movement during an acute GI illness. May be multifactorial but assumed symptomatic from bradycardia to a certain extent. Pacemaker planned as above. (3) Chest pain: Plan: Chest pain persists with intermittent position changes. There is no chest pain to palpation and no evidence of fracture on chest CTA. Highly sensitive tr oponin was trended overnight without significant rise and EKG is without ischemic change. Patient also had a nonischemic stress echo in March 2021. With this and the fact that symptoms are reproduced with movement, angina does not seem likely. There is no evidence of PE on CTA. There is a probable acute nondisplaced horizontal fracture through anterior osteophytes at the T2-T3 level. There is no pain in the spine but will check with ortho spine to see if this may be the cause of his current discomfort. There is no ortho spine coverage today, but consult may be seen tomorrow. He continues on tramadol and morphine. Declines Tylenol. (4) Vomiting and diarrhea: Plan: Appears secondary to foodborne illness and is resolved. Patient is tolerating p.o. We will stop IV fluids now. (5) Hypothyroid: Plan: chronic, stable, cont current thyroid replacement per home regimen. (6) Hyperlipidemia: Plan: Chronic, stable, continue current therapy. (7) DVT prophylaxis: Plan: Lovenox Full code Disposition-plan for continued PCU monitoring pending pacemaker placement then home following procedure. Torie Ibarra DO [facility] Hospitalist Admission and Anticipated Discharge Date Admission Date: August 19, 2021 Subjective 80 yo M admitted for symptomatic bradycardia Feels chest pain with any movement He otherwise has no issues with SOB Has some chronic urinary and bowel incontinence 2/2 prostate cancer therapy. He is eating and tolerating food now. He reports having an issue while mowing the lawn last week where ehe reports a mechanical fall-doesn't know if he might have had a tick bite. Review of Systems Review of Systems: All systems were reviewed and negative except as indicated above. Physical Exam Physical Exam: CONSTITUTIONAL: WNWD, vitals as above, generally well- appearing, NAD EYES: normal conjunctivae, no scleral icterus ENT: external ear and nose normal, MMM NECK: trachea midline, RESPIRATORY: clear to auscultation bilaterally, no crackles, rales or wheezes, normal respiratory effort CARDIOVASCULAR: regular rate and rhythm, S1 and 2 heard without murmurs, gallops or rubs, no JVD, no peripheral edema CHEST: inspection of chest was normal GASTROINTESTINAL: soft, nontender, ND, no guarding MUSCULOSKELETAL: strength 5/5 throughout, head is normocephalic with ecchymosis and slight swelling to right cheek area. normal palpation of chest wall without tenderness SKIN: warm and dry, plaque psoriasis down center of back and on lower right leg. NEUROLOGIC: Could not elicit patellar reflexes bilaterally as patient was tensing, no facial palsy, no dysarthria. CN 2-12 grossly intact, no sensory deficit, normal cognition, normal speech, no tremor PSYCHIATRIC: alert cooperative and oriented to person, place and time. Euthymic mood, makes good eye contact, language grossly intact, recent and remote memory grossly intact. Results & Data Results & Data ([facility]) Vital Signs (Past 12 Hours) Vital Signs Temp Pulse Pulse Resp BP BP BP 08/19/21 12:36 63 16 135/52 L 08/19/21 12:20 47 L 08/19/21 10:00 45 L 14 153/68 H 08/19/21 09:00 41 L 14 134/47 L 08/19/21 08:00 36.5 C 40 L 13 142/59 H 08/19/21 07:01 55 L 16 129/51 L 08/19/21 06:02 36.4 C L 56 L 20 152/78 H 08/19/21 06:01 42 L 12 150/59 H 08/19/21 06:00 48 L 11 L 08/19/21 05:57 46 L 08/19/21 03:00 37.2 C 70 18 150/82 H 08/19/21 02:30 37.1 C 70 18 150/82 H Pulse Ox 08/19/21 12:36 92 08/19/21 12:20 08/19/21 10:00 100 08/19/21 09:00 94 08/19/21 08:00 95 08/19/21 07:01 91 08/19/21 06:02 97 08/19/21 06:01 98 08/19/21 06:00 100 08/19/21 05:57 08/19/21 03:00 97 08/19/21 02:30 97 Laboratory Results Short CBC 08/19/21 Range/Units 02:30 WBC 10.72 (4.8-10.8) K/uL Hgb 14.0 (14.0-18.0) g/dL Hct 40.9 L (42-52) % Plt Count 168 (130-400) K/uL BMP 08/19/21 02:30 Sodium 140 Potassium 4.0 Chloride 106 Carbon Dioxide 25 BUN 21 Creatinine 1.19 Glucose 125 H Calcium 9.2 Cardiac Enzymes 08/19/21 Range/Units 02:30 Total Creatine Kinase 251 H (30-223) U/L Liver Function 08/19/21 Range/Units 02:30 Total Bilirubin 0.8 (0.2-1.0) mg/dl AST 21 (13-39) U/L ALT 18 (7-52) U/L Alkaline Phosphatase 67 (34-104) U/L Albumin 4.0 (3.4-5.0) gm/dl Urine 08/19/21 Range/Units 10:05 Urine Color Yellow Urine Appearance Clear (Clear) Urine pH >= 9.0 H (4.5-7.5) Ur Specific [place] > 1.045 H (1.000-1.030) Urine Protein Negative (Negative) Urine Glucose (UA) Negative (Negative) Diagnostic Findings Cervical Spine CT 08/19/21 02:18 CT OF THE CERVICAL SPINE WITHOUT CONTRAST CLINICAL HISTORY: syncope, [place] COMPARISON STUDY: No previous studies for comparison. TECHNIQUE: Helical axial images of the cervical spine were obtained without IV contrast. Sagittal and coronal reconstructions were viewed. Automated exposure control was utilized for the study. A dose lowering technique was utilized adhering to the principles of ALARA. FINDINGS: Alignment of the cervical spine is anatomic. Vertebral body heights are maintained. No acute cervical spine fracture or subluxation is present. There is no prevertebral edema. Facet joints are intact. Severe multilevel degenerative changes are present. Disc space narrowing is most pronounced at C6- C7. IMPRESSION: 1. No acute cervical spine fracture or subluxation. 2. Severe multilevel degenerative changes within the cervical spine. ACT 112: Negative or not required by law. Electronically signed by: Justino Slade M.D. 08/19/2021 7:20 AM Chest X-Ray 08/19/21 02:19 XR chest 1V portable CLINICAL HISTORY: Midsternal chest pain. COMPARISON STUDY: Chest radiograph September 28, 2018. FINDINGS: Lung volumes are normal. Lungs are clear. There is no pneumothorax or pleural effusion. Cardiac size is normal. Mediastinal contours are normal. There is no evidence for pulmonary edema. There is pulmonary vascular congestion without overt pulmonary edema. IMPRESSION: Pulmonary vascular congestion without overt pulmonary edema. ACT 112: Negative or not required by law. Electronically signed by: Justino Slade M.D. 08/19/2021 8:[address] 08/19/21 02:19 CT OF THE HEAD WITHOUT CONTRAST CLINICAL HISTORY: syncope COMPARISON STUDY: No previous studies for comparison. TECHNIQUE: Helical axial images of the head were obtained without IV contrast. A utomated exposure control was utilized for the study. A dose lowering technique was utilized adhering to the principles of ALARA. FINDINGS: No acute intracranial hemorrhage, midline shift or mass effect is present. The ventricular system is unremarkable. The basal cisterns are patent. No extra-axial collections are present. There are no findings to suggest acute dural sinus thrombosis or acute territorial infarct. No significant calvarial abnormalities are present. Visualized portions of the sinuses and mastoid air cells are clear. IMPRESSION: No acute intracranial findings. ACT 112: Negative or not required by law. Electronically signed by: Justino Slade M.D. 08/19/2021 7:15 AM Chest CTA 08/19/21 03:33 CT ANGIOGRAPHY OF THE CHEST, PULMONARY EMBOLUS PROTOCOL CLINICAL HISTORY: Chest pain. Syncope. Evaluate for pulmonary embolus. COMPARISON STUDY: Chest radiograph September 28, 2018. Chest radiograph August 19, 2021. TECHNIQUE: Following IV administration of 120 mL of Optiray, helical axial images of the chest were obtained utilizing the pulmonary embolus protocol. Maximal intensity projections and sagittal and coronal reformats were viewed on an independent 3D workstation. IV contrast was administered without complication. Automated exposure control was utilized for the study. A dose lowering technique was utilized adhering to the principles of ALARA. FINDINGS: No pulmonary emboli are identified. There is no thoracic aortic dissection. Size of the heart is at the upper limits of normal. There is no pericardial effusion. No pneumothorax or pleural effusion is noted. There are a few small subpleural pulmonary nodules which measure up to 5 mm. These are indeterminate but probably benign. Ground glass opacities favor atelectasis. Suspected mild underlying emphysema. No pneumothorax or pleural effusion is noted. There is no thoracic lymphadenopathy. Note is made of a probable acute nondisplaced horizontal fracture through anterior osteophytes at the T2-T3 level. No extension into the posterior elements is noted. This fracture may extend into the disc space. Moderate anterior osteophytosis is noted. There is trace prevertebral edema. IMPRESSION: 1. No pulmonary emboli identified. 2. Probable acute nondisplaced horizontal fracture through anterior osteophytes at the T2-T3 level. This may extend into the disc space. No extension into the posterior elements identified. Stability is difficult to assess by CT. This finding will be called/faxed to ordering provider at time of dictation. ACT 112: Negative or not required by law. Electronically signed by: Justino Slade M.D. 08/19/2021 7:37 AM Medications Administered Current Inpatient Medications Acetaminophen (Acetaminophen 325 Mg Tab) 650 mg PO Q6H PRN PRN Reason: Fever/pain Stop: 09/18/21 05:56 Cyanocobalamin (Cyanocobalamin (B-12) 500 Mcg Tablet) 1,000 mcg PO QAM [facility] Stop: 09/18/21 08:59 Last Admin: 08/19/21 09:51 Dose: 1,000 mcg Documented by: Diclofenac Sodium (Diclofenac Sod 1% Gel 100 Gm Tube) 2 gm EXT BID [facility]; Protocol Stop: 09/18/21 08:59 Last Admin: 08/19/21 09:53 Dose: 2 gm Documented by: Enoxaparin Sodium (Enoxaparin Inj 40 Mg/0.4 Ml Syr) 40 mg SQ QAM [facility] Stop: 09/18/21 08:59 Last Admin: 08/19/21 09:52 Dose: 40 mg Documented by: Fenofibrate (Fenofibrate Nanocrystallized 48 Mg Tablet) 48 mg PO DAILY [facility] Stop: 09/18/21 08:59 Last Admin: 08/19/21 09:51 Dose: 48 mg Documented by: Lactated Ringer's (Lr) 1,000 mls @ 60 mls/hr IV .[id number] STA Stop: 08/19/21 20:37 Last Admin: 08/19/21 06:25 Dose: 60 mls/hr Documented by: Promethazine HCl 12.5 mg/ (Sodium Chloride) 50.5 mls @ 202 mls/hr IV Q6H PRN PRN Reason: Nausea And Vomiting Stop: 09/18/21 05:56 Levothyroxine Sodium (Levothyroxine Sodium 100 Mcg Tablet) [facility] Stop: 09/18/21 06:29 Last Admin: 08/19/21 06:25 Dose: 100 mcg Documented by: Melatonin (Melatonin 3 Mg Tab) 3 mg PO HS [facility] Stop: 09/18/21 20:59 Miscellaneous (Icu Protocol For Hyperglycemia) 1 ea N/A PRN PRN; Protocol PRN Reason: Hyperglycemia Protocol Stop: 08/21/21 05:56 Morphine Sulfate (Morphine Sulfate 2 Mg/Ml Carp) 2 mg IV Q3H PRN PRN Reason: Pain Stop: 09/02/21 05:56 Last Admin: 08/19/21 12:18 Dose: 2 mg Documented by: Tramadol HCl (Tramadol Hcl 50 Mg Tablet) 25 - 50 mg PO Q4H PRN PRN Reason: Pain Stop: 09/18/21 05:56
[2021-08-19] MEDS: MELATONIN 3 MG TAB PO SCH (21:47)
[2021-08-20 06:04] LABS: Basophils # (auto) 0.01 K/uL (0-0.2); Basophils % (auto) 0.2 %; Eosinophils # (auto) 0.12 K/uL (0-0.5); Eosinophils % (auto) 2.2 %; Hematocrit (blood only) 40.2 % (42-52); Immature Granulocytes # (auto) 0.02 K/uL (0.00-0.02); Immature Granulocytes % (auto) 0.4 %; Lymphocytes % (auto) 21.5 %; Mean Corpuscular Hemoglobin 30.3 pg (25-34); Mean Corpuscular Hgb Conc 32.3 g/dL (32-36); Mean Corpuscular Volume 93.7 fL (80-100); Monocytes # (auto) 0.77 K/uL (0.11-0.59); Monocytes % (auto) 13.8 %; Neutrophils # (auto) 3.45 K/uL (1.4-6.5); Neutrophils % (auto) 61.9 %; Platelet Count 164 K/uL (130-400); RDW Coefficient of Variation 14.1 % (11.5-14.5); RDW Standard Deviation 48.6 fL (36.4-46.3); Red Blood Count 4.29 M/uL (4.7-6.1); White Blood Count 5.57 K/uL (4.8-10.8)
[2021-08-20] MEDS: LEVOTHYROXINE SODIUM 100 MCG TABLET PO SCH (06:11)
[2021-08-20 06:25] LABS: BUN Creatinine Ratio 15.8 (10-20); Calcium 8.5 mg/dl (8.5-10.1); Creatinine Clr Calc Pharmacy 67.8 ml/min; Est GFR (African American) 86.1 ml/min; Est GFR (Non-African American) 74.2 ml/min; Potassium 3.8 mmol/L (3.5-5.1)
[2021-08-20] MEDS: CYANOCOBALAMIN (B-12) 500 MCG TABLET PO SCH (08:13)
[2021-08-20] MEDS: ENOXAPARIN INJ 40 MG/0.4 ML SYR SQ SCH (08:13)
[2021-08-20] MEDS: FENOFIBRATE NANOCRYSTALLIZED 48 MG TABLET PO SCH (08:13)
[2021-08-20] MEDS: DICLOFENAC SOD 1% GEL 100 GM TUBE EXT SCH ×2 (08:13→21:05)
[2021-08-20 09:14] LABS: Estimated Average Glucose 128 mg/dl; Hemoglobin A1C 6.1 % (4.5-5.6)
--- NOTE | 2021-08-20 11:46 | Cardiology Progress Note ---
Date of Service August 20, 2021 Assessment & Plan (1) Syncope: (2) Symptomatic bradycardia: (3) Chest pain: Plan: 80 year old male (1) Syncope: (2) Symptomatic bradycardia: -per review of telemetry on arrival 08/19/21 at 2:11 am, marked sinus bradycardia with sinus arrhythmia with ventricular rate of 35 bpm. -Currently SB in 40s-50s noted. Asymptomatic. He is on no AV bianka blockers at baseline. -No indication for temporary pacemaker or emergent permanent pacemaker at this time. -Noted previous near syncope complaints dating back to January,. -Likely proceed with pacemaker 08/21/21. (3) Chest pain: EKG without ischemic changes. HS troponin normal x 2 which is reassuring. Non ischemic stress echo as outpatient Mar, 2021. Symptoms reproduced with movement and do not appear to be characteristic of angina. No PE on CTA. Per radiology report "Probable acute nondisplaced horizontal fracture through anterior osteophytes at the T2-T3 level", perhaps this is the culprit for his discomfort. Pain controlled at present. Outpatient treatment with ramipril on hold. DVT prophylaxis: on lovenox 40 mg SQ in am. Will hold 08/21 in anticipation of pacemaker. Admission and Anticipated Discharge Date Admission Date: August 19, 2021 Subjective Patient seen in cardiology follow-up. Resting comfortably in bed. Persistent sinus bradycardia in the 40s noted at rest. Blood pressure stable, most recent measurement 128/64. Denies any additional stomach upset or diarrhea. Resting comfortably. Physical Exam Constitutional: WD/WN, vitals as above Respiratory: normal respiratory effort, lungs clear to auscultation Cardiovascular: Rate/Rhythm: + bradycardic Heart Sounds: normal S1 and normal S2; no murmur Extremities: no edema Gastrointestinal (Abdomen): normal bowel sounds, soft, nontender, no hepatosplenomegaly Neurologic: PERRL, EOMI, accommodation nl, no face palsy, no dysarthria Results & Data ([facility]) Vital Signs (Past 12 Hours) Vital Signs Temp Pulse Pulse Resp BP Pulse Ox 08/20/21 11:12 36.6 C 44 L 18 128/64 98 08/20/21 07:16 36.7 C 42 L 19 136/52 L 96 08/20/21 06:30 41 L 08/20/21 04:00 36.7 C 46 L 18 125/66 96 08/20/21 00:00 50 L 08/19/21 23:49 36.7 C 48 L 16 145/71 H 95 Laboratory Results CBC 08/20/21 Range/Units 05:43 WBC 5.57 (4.8-10.8) K/uL RBC 4.29 L (4.7-6.1) M/uL Hgb 13.0 L (14.0-18.0) g/dL Hct 40.2 L (42-52) % Plt Count 164 (130-400) K/uL Neut # (Auto) 3.45 (1.4-6.5) K/uL Lymph # (Auto) 1.20 (1.2-3.4) K/uL O'Brien # (Auto) 0.77 H (0.11-0.59) K/uL Eos # (Auto) 0.12 (0-0.5) K/uL Baso # (Auto) 0.01 (0-0.2) K/uL Comprehensive Metabolic Panel 08/20/21 Range/Units 05:43 Sodium 141 (136-145) mmol/L Potassium 3.8 (3.5-5.1) mmol/L Chloride 110 H (98-107) mmol/L Carbon Dioxide 25 (21-32) mmol/L BUN 15 (6-23) mg/dl Creatinine 0.95 (0.6-1.4) mg/dl Glucose 102 H (70-99(Fasting)) mg/dl Calcium 8.5 (8.5-10.1) mg/dl Intake and Output 08/19/21 08/20/21 08/20/21 22:59 06:59 14:59 Intake Total 1000 / 1680 Output Total 200 / 900 350 / 350 Balance 800 / 780 -350 / -350 Intake: IV 1000 / 1000 Lactated Ringer's 1,000 ml @ 60 1000 / 1000 mls/hr IV .[id number] STA Rx#: [id number] Output: Urine 200 / 900 350 / 350 Other: # Unmeasured Voids 250 Weight 92.17 kg Weight Measurement Method Built in [facility]
--- NOTE | 2021-08-20 13:08 | Hospitalist Progress Note ---
Date of Service August 20, 2021 Assessment & Plan (1) Symptomatic bradycardia: Plan: Remains in sinus bradycardia monitored on telemetry. Rate around 40-50 since last night Asymptomatic at this time. Appreciate cardiology input and recommendation PPM placement tomorrow . (2) Syncope: Plan: Syncopal event occurred at home after bowel movement during an acute GI illness. Defecation syncope aggravated by bradycardia Will have pacemaker placement tomorrow (3) Chest pain: Plan: Chest pain persists with intermittent position changes. There is no chest pain to palpation and no evidence of fracture on chest CTA. Highly sensitive troponin was trended overnight without significant rise and EKG is without ischemic change. Patient also had a nonischemic stress echo in March 2021. There is no evidence of PE on CTA. There is a probable acute nondisplaced horizontal fracture through anterior osteophytes at the T2-T3 level. Pain could be secondary to anterior osteophyte fracture at the level of T2-T3 (4) Vomiting and diarrhea: Plan: Appears secondary to foodborne illness and is resolved. Patient is tolerating p.o. We will stop IV fluids now. (5) Hypothyroid: Plan: chronic, stable, cont current thyroid replacement per home regimen. (6) Hyperlipidemia: Plan: Chronic, stable, continue current therapy. (7) DVT prophylaxis: Plan: Lovenox Full code Disposition-plan for continued PCU monitoring pending pacemaker placement then home following procedure Admission and Anticipated Discharge Date Admission Date: August 19, 2021 Subjective 08/20/2021 The patient was seen and examined in telemetry unit Complains to have chest pain at the lower sternum occasionally when he moves around even in bed Denies any palpitation or shortness of breath Continues to have bradycardia at a rate of 40 to 50/min without any symptoms at rest Review of Systems Review of Systems: All systems reviewed and are unremarkable except as noted below Physical Exam Physical Exam: Lying in bed comfortably Constitutional: well developed, well nourished, + ill appearing and + obese Eyes: PERRL, conjunctivae normal, anicteric sclerae Neck: trachea midline, no thyromegaly Respiratory: no respiratory distress Auscultation: lungs clear to auscultation bilaterally No tenderness over precordium Cardiovascular: Rate/Rhythm: regular rate, regular rhythm and + bradycardic Heart Sounds: normal S1 and normal S2; no murmur Extremities: no edema Gastrointestinal (Abdomen): Inspection/Auscultation: normal bowel sounds; abdomen not distended Percussion/Palpation: abdomen soft; abdomen nontender Musculoskeletal: No acute arthritis in any joint Neurologic: Alert, awake and oriented x3. No focal sensory or no motor deficit appreciated Psychiatric: A+Ox3, euthymic affect Results & Data Results & Data ([facility]) Vital Signs (Past 12 Hours) Vital Signs Temp Pulse Pulse Resp BP Pulse Ox 08/20/21 11:12 36.6 C 44 L 18 128/64 98 08/20/21 07:16 36.7 C 42 L 19 136/52 L 96 08/20/21 06:30 41 L 08/20/21 04:00 36.7 C 46 L 18 125/66 96 Laboratory Results Short CBC 08/20/21 Range/Units 05:43 WBC 5.57 (4.8-10.8) K/uL Hgb 13.0 L (14.0-18.0) g/dL Hct 40.2 L (42-52) % Plt Count 164 (130-400) K/uL [facility] 08/20/21 05:43 Sodium 141 Potassium 3.8 Chloride 110 H Carbon Dioxide 25 BUN 15 Creatinine 0.95 Glucose 102 H Calcium 8.5 Medications Administered Current Inpatient Medications Acetaminophen (Acetaminophen 325 Mg Tab) 650 mg PO Q6H PRN PRN Reason: Fever/pain Stop: 09/18/21 05:56 Cyanocobalamin (Cyanocobalamin (B-12) 500 Mcg Tablet) 1,000 mcg PO QAM [facility] Stop: 09/18/21 08:59 Last Admin: 08/20/21 08:13 Dose: 1,000 mcg Documented by: Diclofenac Sodium (Diclofenac Sod 1% Gel 100 Gm Tube) 2 gm EXT BID [facility]; Protocol Stop: 09/18/21 08:59 Last Admin: 08/20/21 08:13 Dose: 2 gm Documented by: Enoxaparin Sodium (Enoxaparin Inj 40 Mg/0.4 Ml Syr) 40 mg SQ QAM [facility] Stop: 09/18/21 08:59 Last Admin: 08/20/21 08:13 Dose: 40 mg Documented by: Fenofibrate (Fenofibrate Nanocrystallized 48 Mg Tablet) 48 mg PO DAILY [facility] Stop: 09/18/21 08:59 Last Admin: 08/20/21 08:13 Dose: 48 mg Documented by: Promethazine HCl 12.5 mg/ (Sodium Chloride) 50.5 mls @ 202 mls/hr IV Q6H PRN PRN Reason: Nausea And Vomiting Stop: 09/18/21 05:56 Levothyroxine Sodium (Levothyroxine Sodium 100 Mcg Tablet) [facility] Stop: 09/18/21 06:29 Last Admin: 08/20/21 06:11 Dose: 100 mcg Documented by: Melatonin (Melatonin 3 Mg Tab) 3 mg PO [facility] Stop: 09/18/21 20:59 Last Admin: 08/19/21 21:47 Dose: 3 mg Documented by: Morphine Sulfate (Morphine Sulfate 2 Mg/Ml Carp) 2 mg IV Q3H PRN PRN Reason: Pain Stop: 09/02/21 05:56 Last Admin: 08/19/21 12:18 Dose: 2 mg Documented by: Tramadol HCl (Tramadol Hcl 50 Mg Tablet) 25 - 50 mg PO Q4H PRN PRN Reason: Pain Stop: 09/18/21 05:56 Last Admin: 08/19/21 13:40 Dose: 50 mg Documented by:
[2021-08-20] MEDS: MELATONIN 3 MG TAB PO SCH (21:05)
--- NOTE | 2021-08-21 05:49 | Electrocardiogram Report ---
Test Reason : Blood Pressure : / mmHG Vent. Rate : 055 BPM Atrial Rate : 055 BPM P-R Int : 206 ms QRS Dur : 094 ms QT Int : 468 ms P-R-T Axes : 064 -48 059 degrees QTc Int : 447 ms Sinus bradycardia with marked sinus arrhythmia Left axis deviation Anteroseptal infarct (cited on or before 28-SEP-2018) Abnormal ECG When compared with ECG of 13-OCT-2018 09:34, QRS axis Shifted left Questionable change in initial forces of Anterior leads Confirmed by Berlin Nolan ([id number]) on 08/21/2021 5:49:40 AM Referred By: REFERRED SELF Confirmed By:Berlin Nolan
--- NOTE | 2021-08-21 05:54 | Electrocardiogram Report ---
Test Reason : Blood Pressure : / mmHG Vent. Rate : 047 BPM Atrial Rate : 047 BPM P-R Int : 200 ms QRS Dur : 104 ms QT Int : 464 ms P-R-T Axes : 013 -43 041 degrees QTc Int : 410 ms Sinus bradycardia Left axis deviation Anterior infarct (cited on or before 28-SEP-2018) Abnormal ECG When compared with ECG of 19-AUG-2021 02:10, No significant change was found Confirmed by Berlin Nolan ([id number] on 08/21/2021 5:54:32 AM Referred By: REFERRED SELF Confirmed By:Berlin Nolan
[2021-08-21] MEDS ORDERED: CLINDAMYCIN/D5W 600 MG/50 ML PREMIX BAG IV SCH (06:00)
[2021-08-21] MEDS: LEVOTHYROXINE SODIUM 100 MCG TABLET PO SCH (06:23)
[2021-08-21] MEDS: CYANOCOBALAMIN (B-12) 500 MCG TABLET PO SCH (07:19)
[2021-08-21] MEDS: FENOFIBRATE NANOCRYSTALLIZED 48 MG TABLET PO SCH (07:19)
[2021-08-21] MEDS: DICLOFENAC SOD 1% GEL 100 GM TUBE EXT SCH ×2 (07:19→20:32)
[2021-08-21 08:28] LABS: BUN Creatinine Ratio 13.7 (10-20); Creatinine Clr Calc Pharmacy 63.1 ml/min; Est GFR (Non-African American) 68.1 ml/min; Magnesium 1.9 mg/dl (1.7-2.4)
--- NOTE | 2021-08-21 09:05 | Cardiology Consultation ---
Date of Consultation August 21, 2021 Assessment & Plan (1) Syncope: (2) Symptomatic bradycardia: (3) Hypertension: 1. Syncope: It appears very likely that his syncope was due to bradycardia. Option include treating his bradycardia, which we know he has, or monitoring. I think pacemaker implantation is safer. 2. Symptomatic bradycardia: He does have bradycardia and appears to have had symptoms related to it in the recent past as well as likely syncope related to it prompting this visit. He would probably feel better with a pacemaker in place, it would also make it easier for us to treat his hypertension and most likely would eliminate recurrent syncope. I discussed the indications, procedure heart risks and alternatives of pacemaker implantation with him and he understands and agrees to proceed. Consent obtained. I also discussed sedation with him and he is agreeable. Consent obtained. 3. Hypertension: He has significant systolic hypertension, his diastolic blood pressure tends to be acceptable or low. The systolic hypertension is probably in part due to his slow heart rate and noncompliant vessels. This may be improved significantly with improved heart rate. History of Present Illness Reason for Consultation: Syncope, sinus bradycardia Requesting Physician: Dr. Funez Attending Physician: Mark King MD History of Present Illness This is an 80-year-old male with a history of prostate cancer as well as recent identification of sinus bradycardia with symptoms. In January 2021 he was having lightheadedness and near syncope with exercise and walking up a hill, a stress echo in March 2021 was normal. He presented on August 19, 2021 following an episode of loss of consciousness while on the toilet. He was brought to the emergency department and he was noted to be in sinus bradycardia with a heart rate of about 35 bpm. There may have been some second-degree heart block but we have not seen documentation of that. He has a very irregular sinus rate suggestive of sinus node exit block. In the recent past he has been on no medications to cause sinus bradycardia. He has remained on telemetry since his presentation and his heart rate remains bradycardic, predominantly in the 40s although occasionally heart rates in the 30s have been observed. At the time of my evaluation he had no cardiovascular complaints, no exertional chest discomfort, no orthopnea or PND. He does not have palpitations. Allergies Allergy/AdvReac Type Severity Reaction Status Date / Time cephalexin Allergy Severe Swollen Verified 08/19/21 02:29 Lips tamsulosin [From Flomax] Allergy Severe Swollen Verified 08/19/21 02:29 Lip alfuzosin Allergy Unknown LIPS Verified 08/19/21 06:04 SWELLED Home Medications Medication Instructions Recorded Confirmed Type cholecalciferol (vitamin D3) 25 2,000 unit PO QAM 09/23/18 08/19/21 History mcg (1,000 unit) capsule (Vitamin D3) coenzyme Q10 100 mg capsule 100 mg PO QAM 09/23/18 08/19/21 History (CoQ-10) melatonin 3 mg tablet 3 mg PO HS 09/23/18 08/19/21 History ramipril 10 mg capsule 10 mg PO QAM cap 04/20/19 08/19/21 History cyanocobalamin (vitamin B-12) 1,000 mcg PO QAM tab 10/28/19 08/19/21 History 1,000 mcg tablet (Vitamin B-12) ibuprofen 200 mg tablet (Motrin IB) 400 mg PO BID PRN tab 10/28/19 08/19/21 History albuterol sulfate 90 mcg/actuation 2 puff INHALATION Q4 PRN 08/19/21 08/19/21 History aerosol inhaler diclofenac sodium 1 % topical gel 2 g TOPICAL BID 08/19/21 08/19/21 History fenofibrate nanocrystallized 48 mg 48 mg PO DAILY 08/19/21 08/19/21 History tablet levothyroxine 100 mcg tablet 100 mcg PO DAILYBB 08/19/21 08/19/21 History magnesium 100 mg tablet 100 mg PO DAILY 08/19/21 08/19/21 History phenazopyridine 95 mg tablet 95 mg PO UD 08/19/21 08/19/21 History triamcinolone acetonide 0.1 % 1 applic TOPICAL BID PRN 08/19/21 08/19/21 History topical cream turmeric root extract 1,053 mg 1,076 mg PO DAILY 08/19/21 08/19/21 History tablet Patient History Medical History Chronic obstructive pulmonary disease "MILD" Hx of chronic kidney disease Hyperlipemia Hypertension Hypothyroidism Mitral valve prolapse Mild, posterior, per 2015 echo. Osteoarthritis of both knees Prostate cancer Diagnosed 07/06/18 - [facility] 4+4, 4+3 Psoriasis Psoriatic arthritis Sleep apnea DOES NOT USE ANY DEVICE Surgical History History of cardiac catheterization 2004 - nonobstructive CAD History of vasectomy 1979 Hx of nasal septoplasty Family History Mother , Passed age 89 of Alzheimers Disease No problems noted. Father , Passed age 67 of CHF No problems noted. Brother , Passed age 77 of of complications from quadraplegia No problems noted. Daughter No problems noted. Daughter No problems noted. Son No problems noted. 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 HEENT: Unremarkable Neck: No jugular venous distention, carotid pulses are normal and equal bilaterally without bruits. Pulmonary: Clear to auscultation bilaterally. Cardiac: Regular slow rhythm with no murmur, gallop or rub. Abdomen: Soft, nontender with normal bowel sounds. Extremities: No edema. Distal pulses intact. Neurologic: No focal findings. Gait was not tested. Skin: No rash, ecchymoses or petechiae. Results & Data ([facility]) Vital Signs (Past 12 Hours) Vital Signs Temp Pulse Pulse Resp BP Pulse Ox 08/21/21 07:35 36.4 C L 41 L 18 145/70 H 98 08/21/21 02:52 36.3 C L 41 L 18 136/69 98 08/20/21 23:44 37.0 C 44 L 20 116/57 L 97 08/20/21 23:28 54 L Laboratory Results Comprehensive Metabolic Panel 08/21/21 Range/Units 07:17 Sodium 139 (136-145) mmol/L Potassium 4.0 (3.5-5.1) mmol/L Chloride 108 H (98-107) mmol/L Carbon Dioxide 24 (21-32) mmol/L BUN 14 (6-23) mg/dl Creatinine 1.02 (0.6-1.4) mg/dl Glucose 100 H (70-99(Fasting)) mg/dl Calcium 9.0 (8.5-10.1) mg/dl Intake and Output 08/20/21 08/21/21 08/21/21 22:59 06:59 14:59 Output Total 1200 / 1925 375 / 1925 500 / 500 Balance -1200 / -1445 -375 / -1445 -500 / -500 Output: Urine 1200 / 1925 375 / 1925 500 / 500 Other: Weight 85.638 kg Weight Measurement Method Built in [facility] Diagnostic Findings Telemetry: Sinus bradycardia, no clear AV block PG Care Time/CCT Total # of Minutes Spent Total Time Spent with Patient: Total time spent is greater than 50% in coordination of care (as documented) at patient's floor/unit and/or counseling patient: Coding Level of Care Code 08335 Initial Inpt Care Lvl 3 Diagnoses Symptomatic bradycardia R00.1 Syncope R55 Syncope type: unspecified Hypertension I10 Hypertension type: primary hypertension (1) Syncope Syncope type: unspecified Qualified Code(s): R55 - Syncope and collapse (2) Hypertension Hypertension type: primary hypertension Qualified Code(s): I10 - Essential (primary) hypertension
[2021-08-21] MEDS ORDERED: BACITRACIN OINT 0.9 GM PKT ONE (14:18)
[2021-08-21] MEDS ORDERED: VANCOMYCIN HCL 1000MG/20ML VIAL ONE (14:18)
[2021-08-21] MEDS ORDERED: LIDOCAINE 1% LOCAL 20 ML VIAL ONE (14:18)
[2021-08-21] MEDS ORDERED: WATER, STERILE FOR INJ 10 ML VIAL ONE (14:18)
--- NOTE | 2021-08-21 14:30 | Pre Anesthesia Assessment ---
Date of Service August 21, 2021 Pre Sedation Assessment Vital Signs Temp Pulse Pulse Resp BP Pulse Ox 08/21/21 14:04 42 L 18 176/67 H 98 08/21/21 13:24 36.5 C 46 L 18 119/58 L 95 08/21/21 07:35 36.4 C L 41 L 18 145/70 H 98 08/21/21 02:52 36.3 C L 41 L 18 136/69 98 08/20/21 23:44 37.0 C 44 L 20 116/57 L 97 08/20/21 23:28 54 L 08/20/21 18:56 37.0 C 45 L 20 130/63 96 08/20/21 16:27 36.8 C 45 L 19 136/72 98 Cardiovascular + regular rhythm and + bradycardic Respiratory normal respiratory effort, lungs clear to auscultation Pre-Sedation Airway Assessment Smoking Status: Never smoker Hx Sleep Apnea: Yes (pt sts yes and no) Short, Thick Neck: No Thyromental Distance: > or= 3.5 Finger Breadths Oral Cavity: + WNL Mallampati Class: III ASA: ASA3 NPO Status Date of Last Intake of Fluids: 08/21/21 Time of Last Intake of Fluids: 07:00 Date of Last Intake of Solid Food: 08/20/21 Time of Last Intake of Solid Foods: 19:00 Procedure Planning Contraindications for Sedation: none Current Medications Reviewed: Yes Notes The planned sedation has been discussed with the patient. Informed Consent was obtained. I have identified the patient, determined the appropriateness of sedation and have assessed the patient immediately prior to the procedure. All medicine(s) and interventions are by my order.
[2021-08-21] MEDS ORDERED: fentaNYL citrate 100 MCG/2 ML VIAL ONE (14:36)
[2021-08-21] MEDS ORDERED: MIDAZOLAM HCL 5 MG/ML 1 ML VIAL ONE (14:36)
--- NOTE | 2021-08-21 15:46 | Electrophysiology Report ---
Date of Service August 21, 2021 Electrophysiology Procedure Electrophysiology Procedure Report Preoperative diagnosis: Symptomatic sinus bradycardia Postoperative diagnosis: Same Procedure: Dual-chamber pacemaker implantation Surgeon: Сергей Lomas MD Estimated blood loss: 20 cc Specimens: None Anesthesia: Local with sedation Procedure details: After obtaining informed consent for the procedure, the patient was brought to the laboratory and prepped and draped in the standard sterile manner. The left prepectoral region was anesthetized with 1% lidocaine local anesthetic and left axillary venipuncture was performed by percutaneous technique and a guidewire placed through the left subclavian vein into the superior vena cava. The area was further infiltrated with 1% lidocaine local anesthetic and a 5 cm incision was made parallel to the left clavicle and 2 cm below it and carried down to the anterior pectoralis fascia. A pacemaker pocket was formed by blunt dissection anterior to the pectoralis fascia and a vancomycin soaked sponge was placed in the pocket. An 8 [place] Medtronic lead introducer was placed over the guidewire into the left subclavian vein, the dilator and guidewire were removed and a bipolar active fixation steroid tipped atrial lead was advanced through the introducer into the superior vena cava. Using a curved stylette the atrial lead was positioned in the region of the atrial appendage and the screw extended fixing the lead in position. Pacing and sensing thresholds were evaluated in bipolar configuration and are recorded on the implant data sheet.increased rate atrial pacing was used to evaluate AV conduction, and the sedated state AV conduction was present with an atrial paced rate of 110 bpm but second-degree AV block occurred at an atrial paced rate of 120 bpm. This can be considered normal AV conduction. A guidewire was placed through the introducer and the introducer was stripped from the lead and guidewire. Another 8 [place] Medtronic lead introducer was placed over the guidewire into the left subclavian vein, the dilator and guidewire were removed and a bipolar active fixation steroid tipped ventricular lead was advanced through the introducer into the superior vena cava. Using a curved stylette the ventricular lead was advanced through the right ventricular outflow tract into the pulmonary artery and then using a straight stylette was positioned in the right ventricular apex. The screw was extended fixing the lead in position. Pacing and sensing thresholds were evaluated in bipolar configuration and are recorded on the implant data sheet. The introducer was then stripped away from the ventricular lead. Once the leads were in position they were attached to the anterior pectoralis fascia using 2 sutures of 2-0 silk around each lead collar. The vancomycin soaked sponge was removed from the pocket, hemostasis was obtained, the pacemaker was attached to the leads and placed in the pocket with the leads coiled beneath it. The incision was closed with a running double subcutaneous closure of 3-0 Vicryl absorbable suture, followed by running subcuticular skin closure of 4-0 Vicryl absorbable suture. Bacitracin ointment was placed on the incision and a dressing applied. [facility] [place] codes Indication for Procedure (1) Symptomatic bradycardia: Pacing Procedure 1: Pacin Insert/Replace Pacer A & V PG Moderate Sedation Codes Moderate Sedation Codes Procedure 1: Sedation/Anesthesia: 47317 Mod Sedation by the same physician;Init15 Min Child Age 5 & Up Procedure 2: Sedation/Anesthesia: 87160 Mod Sedation by the same physician; Ea [id number] Minutes
--- NOTE | 2021-08-21 16:10 | Cardiology Progress Note ---
Date of Service August 21, 2021 Assessment & Plan (1) Syncope: (2) Symptomatic bradycardia: (3) Chest pain: Plan: 80 year old male (1) Syncope: (2) Symptomatic bradycardia: -EP consultation placed am of 08/21/21, case discussed with Dr. Lomas. EP input noted and appreciated , for pacemaker today. (3) Chest pain: EKG without ischemic changes. HS troponin normal x 2 which is reassuring. Non ischemic stress echo as outpatient Mar, 2021. Symptoms reproduced with movement and do not appear to be characteristic of angina. No PE on CTA. Per radiology report "Probable acute nondisplaced horizontal fracture through an terior osteophytes at the T2-T3 level", perhaps this is the culprit for his discomfort. Pain controlled at present. Outpatient treatment with ramipril on hold. DVT prophylaxis: on lovenox 40 mg SQ in am. Held 08/21 in anticipation of pacemaker. Admission and Anticipated Discharge Date Admission Date: August 19, 2021 Subjective Pt seen in cardiology follow up this am. Remained asymptomatic overnight last night, telemetry in the 40s for the most part, but occasionally does dip down to the upper 30 bpm range. No evidence of AV block. Physical Exam Constitutional: WD/WN, vitals as above Respiratory: normal respiratory effort, lungs clear to auscultation Cardiovascular: Rate/Rhythm: + bradycardic Heart Sounds: normal S1 and normal S2; no murmur Extremities: no edema Gastrointestinal (Abdomen): normal bowel sounds, soft, nontender, no hepatosplenomegaly Neurologic: PERRL, EOMI, accommodation nl, no face palsy, no dysarthria Results & Data ([facility]) Vital Signs (Past 12 Hours) Vital Signs Temp Pulse Resp BP BP Pulse Ox 08/21/21 16:05 60 16 156/83 H 96 08/21/21 15:50 60 16 152/80 H 96 08/21/21 14:04 42 L 18 176/67 H 98 08/21/21 13:24 36.5 C 46 L 18 119/58 L 95 08/21/21 07:35 36.4 C L 41 L 18 145/70 H 98 (1) Syncope Syncope type: unspecified Qualified Code(s): R55 - Syncope and collapse
--- NOTE | 2021-08-21 16:10 | Hospitalist Progress Note ---
Date of Service August 21, 2021 Assessment & Plan (1) Symptomatic bradycardia: Plan: Remains in sinus bradycardia monitored on telemetry. Rate around 40-50 since last night Asymptomatic at this time. Appreciate cardiology input and recommendation Remains asymptomatic Will have pacemaker implantation sometime today (2) Syncope: Plan: Syncopal event occurred at home after bowel movement during an acute GI illness. Defecation syncope aggravated by bradycardia Will have pacemaker placement tomorrow (3) Chest pain: Plan: Chest pain persists with intermittent position changes. There is no chest pain to palpation and no evidence of fracture on chest CTA. Highly sensitive troponin was trended overnight without significant rise and EKG is without ischemic change. Patient also had a nonischemic stress echo in March 2021. There is no evidence of PE on CTA. There is a probable acute nondisplaced horizontal fracture through anterior osteophytes at the T2-T3 level. Pain could be secondary to anterior osteophyte fracture at the level of T2-T3 Denies any more chest pain (4) Vomiting and diarrhea: Plan: Appears secondary to foodborne illness and is resolved. Patient is tolerating p.o. We will stop IV fluids now. (5) Hypothyroid: Plan: Chronic, stable, cont current thyroid replacement per home regimen. (6) Hyperlipidemia: Plan: Chronic, stable, continue current therapy. (7) DVT prophylaxis: Plan: Lovenox Full code Disposition-plan for continued PCU monitoring pending pacemaker placement then home following procedure Admission and Anticipated Discharge Date Admission Date: August 19, 2021 Subjective 08/20/2021 The patient was seen and examined in telemetry unit Complains to have chest pain at the lower sternum occasionally when he moves around even in bed Denies any palpitation or shortness of breath Continues to have bradycardia at a rate of 40 to 50/min without any symptoms at rest 08/21/2021 The patient was seen and examined in telemetry unit He has been stable and denies any symptoms He did not have any more significant bradycardia arrhythmia He will have pacemaker placement sometime today Review of Systems Review of Systems: All systems reviewed and are unremarkable except as noted below Physical Exam Physical Exam: Lying in bed comfortably Constitutional: well developed, well nourished, + ill appearing and + obese Eyes: PERRL, conjunctivae normal, anicteric sclerae Neck: trachea midline, no thyromegaly Respiratory: no respiratory distress Auscultation: lungs clear to auscultation bilaterally Cardiovascular: Rate/Rhythm: regular rate, regular rhythm and + bradycardic Heart Sounds: normal S1 and normal S2; no murmur Extremities: no edema Gastrointestinal (Abdomen): Inspection/Auscultation: normal bowel sounds; abdomen not distended Percussion/Palpation: abdomen soft; abdomen nontender Musculoskeletal: No acute arthritis involving any joint Neurologic: Alert, awake and oriented x3. No focal sensory and motor deficit appreciated Psychiatric: A+Ox3, euthymic affect Lymphatic: no cervical or axillary lymphadenopathy Results & Data Results & Data ([facility]) Vital Signs (Past 12 Hours) Vital Signs Temp Pulse Resp BP BP Pulse Ox 08/21/21 16:05 60 16 156/83 H 96 08/21/21 15:50 60 16 152/80 H 96 08/21/21 14:04 42 L 18 176/67 H 98 08/21/21 13:24 36.5 C 46 L 18 119/58 L 95 08/21/21 07:35 36.4 C L 41 L 18 145/70 H 98 Laboratory Results [facility] 08/21/21 07:17 Sodium 139 Potassium 4.0 Chloride 108 H Carbon Dioxide 24 BUN 14 Creatinine 1.02 Glucose 100 H Calcium 9.0 Medications Administered Current Inpatient Medications Acetaminophen (Acetaminophen 325 Mg Tab) 650 mg PO Q6H PRN PRN Reason: Fever/pain Stop: 09/18/21 05:56 Acetaminophen/Codeine Phosphate (Acetaminophen W/Codeine #3 1 Tab) 1 - 2 tab PO Q4H PRN PRN Reason: Moderate-Severe Pain Stop: 09/20/21 15:53 Cyanocobalamin (Cyanocobalamin (B-12) 500 Mcg Tablet) 1,000 mcg PO QAM [facility] Stop: 09/18/21 08:59 Last Admin: 08/21/21 07:19 Dose: Not Given Documented by: Diclofenac Sodium (Diclofenac Sod 1% Gel 100 Gm Tube) 2 gm EXT BID [facility]; Protocol Stop: 09/18/21 08:59 Last Admin: 08/21/21 07:19 Dose: 2 gm Documented by: Enoxaparin Sodium (Enoxaparin Inj 40 Mg/0.4 Ml Syr) 40 [facility] Stop: 09/18/21 08:59 Last Admin: 08/20/21 08:13 Dose: 40 mg Documented by: Fenofibrate (Fenofibrate Nanocrystallized 48 Mg Tablet) 48 mg PO DAILY [facility] Stop: 09/18/21 08:59 Last Admin: 08/21/21 07:19 Dose: Not Given Documented by: Promethazine HCl 12.5 mg/ (Sodium Chloride) 50.5 mls @ 202 mls/hr IV Q6H PRN PRN Reason: Nausea And Vomiting Stop: 09/18/21 05:56 Clindamycin Phosphate (Cleocin/D5w) 600 mg in 50 mls @ 100 mls/hr IV PREOP [facility] Stop: 08/21/21 18:00 Last Admin: 08/21/21 15:35 Dose: 100 mls/hr Documented by: Levothyroxine Sodium (Levothyroxine Sodium 100 Mcg Tablet) 100 mcg PO DAILYBB [facility] Stop: 09/18/21 06:29 Last Admin: 08/21/21 06:23 Dose: 100 mcg Documented by: Melatonin (Melatonin 3 Mg Tab) 3 mg PO HS [facility] Stop: 09/18/21 20:59 Last Admin: 08/20/21 21:05 Dose: 3 mg Documented by: Morphine Sulfate (Morphine Sulfate 2 Mg/Ml Carp) 2 mg IV Q3H PRN PRN Reason: Pain Stop: 09/02/21 05:56 Last Admin: 08/19/21 12:18 Dose: 2 mg Documented by: Tramadol HCl (Tramadol Hcl 50 Mg Tablet) 25 - 50 mg PO Q4H PRN PRN Reason: Pain Stop: 09/18/21 05:56 Last Admin: 08/19/21 13:40 Dose: 50 mg Documented by: (1) Syncope Syncope type: unspecified Qualified Code(s): R55 - Syncope and collapse
--- NOTE | 2021-08-21 16:57 | Post Anesthesia Assessment ---
Date of Service August 21, 2021 Post Sedation Assessment Vital Signs Temp Pulse Pulse Pulse Resp BP BP 08/21/21 16:21 36.4 C L 60 20 150/79 H 08/21/21 16:05 60 16 156/83 H 08/21/21 15:50 60 16 152/80 H 08/21/21 14:04 42 L 18 176/67 H 08/21/21 13:24 36.5 C 46 L 18 119/58 L 08/21/21 07:35 36.4 C L 41 L 18 145/70 H 08/21/21 02:52 36.3 C L 41 L 18 136/69 08/20/21 23:44 37.0 C 44 L 20 116/57 L 08/20/21 23:28 54 L 08/20/21 18:56 37.0 C 45 L 20 130/63 Pulse Ox 08/21/21 16:21 97 08/21/21 16:05 96 08/21/21 15:50 96 08/21/21 14:04 98 08/21/21 13:24 95 08/21/21 07:35 98 08/21/21 02:52 98 08/20/21 23:44 97 08/20/21 23:28 08/20/21 18:56 96 Recovery Score Activity: Moves 4 extremities Respiration: Deep Breath/Cough Circulation: +/-20% PreAnes Value Consciousness: Fully Awake Oxygen Saturation: > 92% On Room Air Post Anesthesia Score: 10 Discharge Sedation Level of Care: Fast Track Phase II Post Sedation Plan On clinical assessment, the patient appears to have tolerated the sedation without complications. Patient is recovering as anticipated. Patient will continue to be monitored by nursing and may be discharged when sedation discharge criteria are met per below protocol. Upon Completions of procedure up to 15 minutes continue every 5 minute vital signs and the P.A.R. score; then discharge to a Phase I or Fast Track to Phase II per the following guidelines: * Discharge Patient to appropriate Phase II area if PAR is 8 or greater or return to pre- procedure baseline. The post - procedure orders will be as directed. * If PAR score is less than 8 or not return to pre-procedure baseline then patient will follow Phase I monitoring till PAR is reached for Phase II. The Phase I may be done in procedure room or may call to secure a Phase I area. * If naloxone or flumazenil are used for reversal, hold in Phase I for continued monitoring from when last reversal dose was given for a minimum of 60 minutes or longer pending the nurse and/or physician discretion of patient condition before discharge to Phase II. Please call the Sedation Physician to re-evaluate and complete post-note for discharge to Phase II area. Do NOT discharge from procedure sedation or Phase 1 until post- sedation evaluation note is complete by procedure /sedation MD Sedation Discharge Instructions to be given to the patient at discharge to home.
[2021-08-21] MEDS: ACETAMINOPHEN W/CODEINE #3 1 TAB PO PRN (20:31)
[2021-08-21] MEDS: MELATONIN 3 MG TAB PO SCH (20:31)
--- NOTE | 2021-08-21 21:00 | Electrocardiogram Report ---
Test Reason : Blood Pressure : / mmHG Vent. Rate : 042 BPM Atrial Rate : 042 BPM P-R Int : 196 ms QRS Dur : 092 ms QT Int : 476 ms P-R-T Axes : 029 -45 037 degrees QTc Int : 397 ms Marked sinus bradycardia Left axis deviation Anteroseptal infarct (cited on or before 28-SEP-2018) Abnormal ECG When compared with ECG of 19-AUG-2021 05:33, No significant change was found Confirmed by Berlin Nolan ([id number]) on 08/21/2021 9:00:21 PM Referred By: REFERRED SELF Confirmed By:Berlin Nolan
[2021-08-22] MEDS: LEVOTHYROXINE SODIUM 100 MCG TABLET PO SCH (05:54)
[2021-08-22] MEDS ORDERED: CLINDAMYCIN PHOS 300 MG/2 ML VIAL IV SCH (06:00)
--- NOTE | 2021-08-22 08:01 | XRay Report ---
TWO VIEW CHEST CLINICAL HISTORY: Pacemaker implantation. FINDINGS: PA and lateral chest radiographs are compared to chest x-ray and chest CT dated 08/19/2021. A 2-lead cardiac pacemaker has been placed and partially obscures the left upper chest. Leads project over the right atrial appendage and the right ventricle. The heart is enlarged noting atherosclerotic calcification of the thoracic aorta. The pulmonary vasculature is noncongested. Chronic interstitial thickening is similar to previous. Pleural-parenchymal change is noted the apices. Scarring/atelecta sis is noted at the lung bases. No airspace consolidation or pleural effusion is identified. There is no pneumothorax. The skeletal structures are osteopenic. The bony thorax appears intact. IMPRESSION: 1. A 2-lead cardiac pacemaker has been implanted as above. No pneumothorax is identified post procedu re. 2. Cardiomegaly without radiographic evidence of congestive failure. 3. No airspace consolidation or pleural effusion is identified. ACT 112: Negative or not required by law. Electronically signed by: Haider Parikh M.D. 08/22/2021 8:00 AM
[2021-08-22] MEDS: ACETAMINOPHEN W/CODEINE #3 1 TAB PO PRN ×2 (08:02→23:02)
[2021-08-22] MEDS: CYANOCOBALAMIN (B-12) 500 MCG TABLET PO SCH (08:03)
[2021-08-22] MEDS: DICLOFENAC SOD 1% GEL 100 GM TUBE EXT SCH ×2 (08:03→20:43)
[2021-08-22] MEDS: FENOFIBRATE NANOCRYSTALLIZED 48 MG TABLET PO SCH (08:03)
--- NOTE | 2021-08-22 08:58 | Cardiology Progress Note ---
Date of Service August 22, 2021 Assessment & Plan (1) Status post placement of cardiac pacemaker: Plan: He is doing well postop day #1. The site looks good, the chest x-ray shows good lead position. He is having some right-sided chest discomfort which is not related to the procedure. Electrical measurements through the pacemaker are excellent. From my standpoint he is stable for discharge. I did fill out post discharge instructions on his to discharge paperwork, I have not scheduled follow-up visit which should be in [facility] for next week. Admission and Anticipated Discharge Date Admission Date: August 19, 2021 Subjective He is complaining of some right sided discomfort near her shoulder, he is quite worried about it but he does not have any left-sided incisional discomfort. He has no precordial chest discomfort and no shortness of breath. Physical Exam Physical Exam: The incision is clean and dry with no bleeding, no swelling or erythema. Cardiac rhythm is regular with no rub Lungs are clear Results & Data ([facility]) Vital Signs (Past 12 Hours) Vital Signs Temp Pulse Pulse Resp BP BP Pulse Ox 08/22/21 07:21 36.7 C 60 18 137/79 98 08/22/21 03:40 36.6 C 60 16 144/72 H 93 08/22/21 00:01 63 08/21/21 22:39 36.8 C 61 18 135/78 94 Diagnostic Findings Postop ECG: Atrial pacing at 60 bpm which is appropriate Telemetry: Pacing throughout with intact AV conduction Chest x-ray: Good lead position, no pneumothorax Pacemaker evaluation: Excellent pacing and sensing characteristics PG Care Time/CCT Total # of Minutes Spent Total Time Spent with Patient: Total time spent is greater than 50% in coordination of care (as documented) at patient's floor/unit and/or counseling patient: Coding Level of Care Code 83587 Post Operative Follow-Up Diagnoses Status post placement of cardiac pacemaker Z95.0 CPT Codes Dual Lead Pacemaker System - [id number] ([id number])
--- NOTE | 2021-08-22 10:43 | Cardiology Progress Note ---
Date of Service August 22, 2021 Assessment & Plan (1) Syncope: (2) Symptomatic bradycardia: (3) Chest pain: Plan: 80 year old male (1) Syncope: (2) Symptomatic bradycardia: -s/p dual chamber [employer] permanent pacemaker , 08/21/21, Dr Lomas. -telemetry reveals SR in 60s with atrial pacing. -Device interrogation within normal limits. -No pneumothorax on CXR 08/22. (3) Musculoskeletal Chest pain: Continue Tylenol. Advance activity today , need to make sure he is ambulatory and pain controlled before discharge. I anticipate this will take at least another day. DVT prophylaxis: hold heparin / lovenox in effort to reduce risk of pacemaker pocket hematoma. Ambulate as tolerated. I have contacted [facility] cardiology clinic to arrange wound check in 6-10 days, device check, follow up with me within 1 month. Admission and Anticipated Discharge Date Admission Date: August 19, 2021 Subjective Patient seen in general cardiology follow up of syncope and bradycardia. Underwent placement of pacemaker yesterday without complications. Pt will post procedure left shoulder pain and right sided musculoskeletal pain. Physical Exam Constitutional: WD/WN, vitals as above Respiratory: normal respiratory effort, lungs clear to auscultation Cardiovascular: RRR, no murmur, no edema Neurologic: PERRL, EOMI, accommodation nl, no face palsy, no dysarthria Results & Data ([facility]) Vital Signs (Past 12 Hours) Vital Signs Temp Pulse Pulse Resp BP BP Pulse Ox 08/22/21 07:21 36.7 C 60 18 137/79 98 08/22/21 03:40 36.6 C 60 16 144/72 H 93 08/22/21 00:01 63 08/21/21 22:39 36.8 C 61 18 135/78 94 (1) Syncope Syncope type: unspecified Qualified Code(s): R55 - Syncope and collapse
--- NOTE | 2021-08-22 11:05 | Communication Note ---
Date of Service: August 22, 2021 Noted started in error.
[2021-08-22] MEDS: lisinopril 10 MG TAB PO SCH (11:50)
--- NOTE | 2021-08-22 14:11 | XRay Report ---
XR ribs RT min 2V CLINICAL HISTORY: Right-sided rib pain with no history of trauma. COMPARISON STUDY: Chest radiograph from 08/22/2021 TECHNIQUE: Right rib series is performed. FINDINGS: Multiple views of the ribs demonstrate no evidence for displaced fracture. IMPRESSION: 1. No evidence for rib fracture. ACT 112: Negative or not required by law. Electronically signed by: Guero Torres M.D. 08/22/2021 2:10 PM
--- NOTE | 2021-08-22 15:09 | Hospitalist Progress Note ---
Date of Service August 22, 2021 Assessment & Plan (1) Symptomatic bradycardia: Plan: Remains in sinus bradycardia monitored on telemetry. Rate around 40-50 since last night Asymptomatic at this time. Appreciate cardiology input and recommendation Remains asymptomatic Will have pacemaker implantation sometime today Status post pacemaker placement and the device is checked by the electrical technician today and has been working all right We will get PT and OT evaluation prior to discharge (2) Syncope: Plan: Syncopal event occurred at home after bowel movement during an acute GI illness. Defecation syncope aggravated by bradycardia Will have pacemaker placement tomorrow As above (3) Chest pain: Plan: Chest pain persists with intermittent position changes. There is no chest pain to palpation and no evidence of fracture on chest CTA. Highly sensitive troponin was trended overnight without significant rise and EKG is without ischemic change. Patient also had a nonischemic stress echo in March 2021. There is no evidence of PE on CTA. There is a probable acute nondisplaced horizontal fracture through anterior osteophytes at the T2-T3 level. Pain could be secondary to anterior osteophyte fracture at the level of T2-T3 Has had chest pain on the right side during chest x-ray with low blood pressure Became more right on the floor We will monitor overnight (4) Vomiting and diarrhea: Plan: Appears secondary to foodborne illness and is resolved. Patient is tolerating p.o. We will stop IV fluids now. (5) Hypothyroid: Plan: Chronic, stable, cont current thyroid replacement per home regimen. (6) Hyperlipidemia: Plan: Chronic, stable, continue current therapy. (7) DVT prophylaxis: Plan: Lovenox Full code Disposition-plan for continued PCU monitoring pending pacemaker placement then home following procedure Admission and Anticipated Discharge Date Admission Date: August 19, 2021 Subjective 08/20/2021 The patient was seen and examined in telemetry unit Complains to have chest pain at the lower sternum occasionally when he moves around even in bed Denies any palpitation or shortness of breath Continues to have bradycardia at a rate of 40 to 50/min without any symptoms at rest 08/21/2021 The patient was seen and examined in telemetry unit He has been stable and denies any symptoms He did not have any more significant bradycardia arrhythmia He will have pacemaker placement sometime today 08/22/2021 The patient was seen and examined in telemetry unit He still complains to pain in the right chest wall near to the sternum with local tenderness at the costochondral junction He has had an episode of more pain with sweating during chest x-ray this afternoon but remained hemodynamically stable thereafter Has not been up and about since admission Will not go home today and will ask for PT and OT evaluation Review of Systems Review of Systems: All systems reviewed and are unremarkable except as noted below Cardiovascular: Additional Comments: Right-sided chest pain with localized tenderness Physical Exam Physical Exam: Lying in bed comfortably Constitutional: well developed, well nourished, + ill appearing and + obese Eyes: PERRL, conjunctivae normal, anicteric sclerae Neck: trachea midline, no thyromegaly Respiratory: no respiratory distress Auscultation: lungs clear to auscultation bilaterally Cardiovascular: Rate/Rhythm: regular rate, regular rhythm and + bradycardic Heart Sounds: normal S1 and normal S2; no murmur Extremities: no edema Chest (Breasts): Additional Comments: Tender right sternal border Gastrointestinal (Abdomen): Inspection/Auscultation: normal bowel sounds; abdomen not distended Percussion/Palpation: abdomen soft; abdomen nontender Musculoskeletal: No acute arthritis involving any joint Neurologic: Alert, awake and oriented x3. No focal sensory or no motor deficit appreciated Psychiatric: A+Ox3, euthymic affect Lymphatic: no cervical or axillary lymphadenopathy Results & Data Results & Data ([facility]) Vital Signs (Past 12 Hours) Vital Signs Temp Pulse Resp BP BP Pulse Ox 08/22/21 11:00 36.4 C L 60 16 126/77 99 08/22/21 07:21 36.7 C 60 18 137/79 98 08/22/21 03:40 36.6 C 60 16 144/72 H 93 Medications Administered Current Inpatient Medications Acetaminophen (Acetaminophen 325 Mg Tab) 650 mg PO Q6H PRN PRN Reason: Fever/pain Stop: 09/18/21 05:56 Acetaminophen/Codeine Phosphate (Acetaminophen W/Codeine #3 1 Tab) 1 - 2 tab PO Q4H PRN PRN Reason: Moderate-Severe Pain Stop: 09/20/21 15:53 Last Admin: 08/22/21 08:02 Dose: 2 tab Documented by: Cyanocobalamin (Cyanocobalamin (B-12) 500 Mcg Tablet) 1,000 mcg PO [facility] Stop: 09/18/21 08:59 Last Admin: 08/22/21 08:03 Dose: 1,000 mcg Documented by: Diclofenac Sodium (Diclofenac Sod 1% Gel 100 Gm Tube) 2 gm EXT BID [facility]; Protocol Stop: 09/18/21 08:59 Last Admin: 08/22/21 08:03 Dose: 2 gm Documented by: Fenofibrate (Fenofibrate Nanocrystallized 48 Mg Tablet) 48 mg PO DAILY [facility] Stop: 09/18/21 08:59 Last Admin: 08/22/21 08:03 Dose: 48 mg Documented by: Promethazine HCl 12.5 mg/ (Sodium Chloride) 50.5 mls @ 202 mls/hr IV Q6H PRN PRN Reason: Nausea And Vomiting Stop: 09/18/21 05:56 Levothyroxine Sodium (Levothyroxine Sodium 100 Mcg Tablet) [facility] Stop: 09/18/21 06:29 Last Admin: 08/22/21 05:54 Dose: 100 mcg Documented by: Lisinopril (Lisinopril 10 Mg Tab) [facility] Stop: 09/21/21 10:44 Last Admin: 08/22/21 11:50 Dose: 10 mg Documented by: Melatonin (Melatonin 3 Mg Tab) 3 mg PO HS [facility] Stop: 09/18/21 20:59 Last Admin: 08/21/21 20:31 Dose: 3 mg Documented by: Morphine Sulfate (Morphine Sulfate 2 Mg/Ml Carp) 2 mg IV Q3H PRN PRN Reason: Pain Stop: 09/02/21 05:56 Last Admin: 08/19/21 12:18 Dose: 2 mg Documented by: Tramadol HCl (Tramadol Hcl 50 Mg Tablet) 25 - 50 mg PO Q4H PRN PRN Reason: Pain Stop: 09/18/21 05:56 Last Admin: 08/19/21 13:40 Dose: 50 mg Documented by: (1) Syncope Syncope type: unspecified Qualified Code(s): R55 - Syncope and collapse
[2021-08-22] MEDS: MELATONIN 3 MG TAB PO SCH (20:42)
--- NOTE | 2021-08-22 21:49 | Electrocardiogram Report ---
Test Reason : Blood Pressure : / mmHG Vent. Rate : 060 BPM Atrial Rate : 060 BPM P-R Int : 242 ms QRS Dur : 102 ms QT Int : 436 ms P-R-T Axes : 030 -47 080 degrees QTc Int : 436 ms Atrial-paced rhythm with prolonged AV conduction Left anterior fascicular block Anteroseptal infarct (cited on or before 28-SEP-2018) Abnormal ECG When compared with ECG of 20-AUG-2021 06:37, Electronic atrial pacemaker has replaced Sinus rhythm Confirmed by Berlin Nolan ([id number]) on 08/22/2021 9:49:09 PM Referred By: REFERRED SELF Confirmed By:Berlin Nolan
[2021-08-23] MEDS: LEVOTHYROXINE SODIUM 100 MCG TABLET PO SCH (05:54)
[2021-08-23] MEDS: CYANOCOBALAMIN (B-12) 500 MCG TABLET PO SCH (07:32)
[2021-08-23] MEDS: lisinopril 10 MG TAB PO SCH (07:32)
[2021-08-23] MEDS: FENOFIBRATE NANOCRYSTALLIZED 48 MG TABLET PO SCH (07:32)
[2021-08-23] MEDS: DICLOFENAC SOD 1% GEL 100 GM TUBE EXT SCH (07:33)
[2021-08-23 07:39] LABS: Basophils # (auto) 0.02 K/uL (0-0.2); Basophils % (auto) 0.4 %; Eosinophils # (auto) 0.12 K/uL (0-0.50); Eosinophils % (auto) 2.4 %; Hematocrit (blood only) 41.2 % (40.1-51.0); Hemoglobin 13.8 g/dl (14.0-18.0); Immature Granulocytes # (auto) 0.01 K/uL (0.00-0.02); Immature Granulocytes % (auto) 0.2 %; Lymphocytes # (auto) 1.12 K/uL (1.2-3.4); Mean Corpuscular Hemoglobin 30.7 pg (25.0-34.0); Mean Corpuscular Hgb Conc 33.5 g/dL (32.0-36.0); Mean Corpuscular Volume 91.8 fL (80.0-100.0); Mean Platelet Volume 12.9 fL (9.4-12.4); Monocytes % (auto) 13.8 %; Neutrophils # (auto) 3.11 K/uL (1.4-6.5); Neutrophils % (auto) 61.2 %; Platelet Count 150 K/uL (130-400); RDW Coefficient of Variation 13.3 % (11.5-14.5); RDW Standard Deviation 45.1 fL (36.4-46.3); Red Blood Count 4.49 M/uL (4.63-6.08); White Blood Count 5.08 K/ul (4.8-10.8)
[2021-08-23 07:55] LABS: BUN Creatinine Ratio 22.4 (10-20); Creatinine Clr Calc Pharmacy 64.5 ml/min; Est GFR (African American) 82.3 ml/min; Potassium 3.7 mmol/L (3.5-5.1)
--- NOTE | 2021-08-23 11:38 | Cardiology Progress Note ---
Date of Service August 23, 2021 Assessment & Plan (1) Syncope: (2) Symptomatic bradycardia: (3) Chest pain: Plan: 80 year old male (1) Syncope: (2) Symptomatic bradycardia: -s/p dual chamber [employer] permanent pacemaker , 08/21/21, Dr Lomas. -telemetry reveals SR in 60s with atrial pacing. -Device interrogation within normal limits. -No pneumothorax on CXR 08/22. (3) Musculoskeletal Chest pain: Continue Tylenol. The patient most significant barrier to discharge is optimizing his musculoskeletal pain. He has been seen by physical therapy and is walking well. No rib fractures noted on x-ray 08/22/2021. DVT prophylaxis: hold heparin / lovenox in effort to reduce risk of pacemaker pocket hematoma. Ambulate as tolerated. I have contacted [facility] [place] cardiology clinic to arrange wound check in 6-10 days, device check, follow up with me within 1 month. Admission and Anticipated Discharge Date Admission Date: August 19, 2021 Subjective Patient seen in cardiology follow-up. From cardiac perspective feeling well. Has some mild procedure related discomfort at his pacemaker site. Overall his musculoskeletal pains are little bit better today. Telemetry reveals stable sinus rhythm with atrial pacing in the 60s overnight. Physical Exam Constitutional: WD/WN, vitals as above Respiratory: normal respiratory effort, lungs clear to auscultation Cardiovascular: RRR, no murmur, no edema Rate/Rhythm: + bradycardic Heart Sounds: normal S1 and normal S2; no murmur Extremities: no edema Gastrointestinal (Abdomen): normal bowel sounds, soft, nontender, no hepatosplenomegaly Neurologic: PERRL, EOMI, accommodation nl, no face palsy, no dysarthria Results & Data ([facility]) Vital Signs (Past 12 Hours) Vital Signs Temp Pulse Resp BP BP Pulse Ox 08/23/21 11:15 36.5 C 60 20 120/67 97 08/23/21 06:49 36.6 C 61 18 121/69 95 08/23/21 02:53 36.4 C L 60 18 128/70 95 (1) Syncope Syncope type: unspecified Qualified Code(s): R55 - Syncope and collapse
--- NOTE | 2021-08-23 13:55 | Hospitalist Progress Note ---
Date of Service August 23, 2021 Assessment & Plan (1) Symptomatic bradycardia: Plan: Remains in sinus bradycardia monitored on telemetry. Rate around 40-50 since last night Asymptomatic at this time. Appreciate cardiology input and recommendation Remains asymptomatic Will have pacemaker implantation sometime today Status post pacemaker placement and the device is checked by the animal technician today and has been working all right We will get PT and OT evaluation prior to discharge No more bradycardia following pacemaker implantation Will have PT evaluation prior to discharge (2) Syncope: Plan: Syncopal event occurred at home after bowel movement during an acute GI illness. Defecation syncope aggravated by bradycardia Will have pacemaker placement tomorrow As above Has been ambulating in the room without any difficulties (3) Chest pain: Plan: Chest pain persists with intermittent position changes. There is no chest pain to palpation and no evidence of fracture on chest CTA. Highly sensitive troponin was trended overnight without significant rise and EKG is without ischemic change. Patient also had a nonischemic stress echo in March 2021. There is no evidence of PE on CTA. There is a probable acute nondisplaced horizontal fracture through anterior osteophytes at the T2-T3 level. Pain could be secondary to anterior osteophyte fracture at the level of T2-T3 Has had chest pain on the right side during chest x-ray with low blood pressure Became more right on the floor No more right-sided chest pain and no local tenderness (4) Vomiting and diarrhea: Plan: Appears secondary to foodborne illness and is resolved. Patient is tolerating p.o. We will stop IV fluids now. (5) Hypothyroid: Plan: Chronic, stable, cont current thyroid replacement per home regimen. (6) Hyperlipidemia: Plan: Chronic, stable, continue current therapy. (7) DVT prophylaxis: Plan: Lovenox Full code Disposition-plan for continued PCU monitoring pending pacemaker placement then home following procedure Will be discharged home this afternoon Admission and Anticipated Discharge Date Admission Date: August 19, 2021 Subjective 08/20/2021 The patient was seen and examined in telemetry unit Complains to have chest pain at the lower sternum occasionally when he moves around even in bed Denies any palpitation or shortness of breath Continues to have bradycardia at a rate of 40 to 50/min without any symptoms at rest 08/21/2021 The patient was seen and examined in telemetry unit He has been stable and denies any symptoms He did not have any more significant bradycardia arrhythmia He will have pacemaker placement sometime today 08/22/2021 The patient was seen and examined in telemetry unit He still complains to pain in the right chest wall near to the sternum with local tenderness at the costochondral junction He has had an episode of more pain with sweating during chest x-ray this afternoon but remained hemodynamically stable thereafter Has not been up and about since admission Will not go home today and will ask for PT and OT evaluation 08/23/2021 The patient was seen and examined in telemetry unit He has been stable with this paced rhythm and rate remained around 60 No more chest pain and no palpitation He has been waiting to be seen by the physical therapist before discharge this afternoon Review of Systems Review of Systems: All systems reviewed and are unremarkable except as noted below Cardiovascular: Additional Comments: Right-sided chest pain with localized tenderness-no more chest pain Physical Exam Physical Exam: Lying in bed comfortably Constitutional: well developed, well nourished, + ill appearing and + obese Eyes: PERRL, conjunctivae normal, anicteric sclerae Neck: trachea midline, no thyromegaly Respiratory: no respiratory distress Auscultation: lungs clear to auscultation bilaterally Cardiovascular: Rate/Rhythm: regular rate, regular rhythm and + bradycardic Heart Sounds: normal S1 and normal S2; no murmur Extremities: no edema Gastrointestinal (Abdomen): Inspection/Auscultation: normal bowel sounds; abdomen not distended Percussion/Palpation: abdomen soft; abdomen nontender Musculoskeletal: No local tenderness involving the right side of the chest. Neurologic: Alert, awake and oriented x3. No focal sensory or no motor deficit appreciated Psychiatric: A+Ox3, euthymic affect Lymphatic: no cervical or axillary lymphadenopathy Results & Data Results & Data ([facility]) Vital Signs (Past 12 Hours) Vital Signs Temp Pulse Resp BP BP Pulse Ox 08/23/21 11:15 36.5 C 60 20 120/67 97 08/23/21 06:49 36.6 C 61 18 121/69 95 08/23/21 02:53 36.4 C L 60 18 128/70 95 Laboratory Results Short CBC 08/23/21 Range/Units 06:52 WBC 5.08 (4.8-10.8) K/ul Hgb 13.8 L (14.0-18.0) g/dl Hct 41.2 (40.1-51.0) % Plt Count 150 (130-400) K/uL BMP 08/23/21 06:52 Sodium 137 Potassium 3.7 Chloride 106 Carbon Dioxide 24 BUN 22 Creatinine 0.98 Glucose 100 H Calcium 9.0 Medications Administered Current Inpatient Medications Acetaminophen (Acetaminophen 325 Mg Tab) 650 mg PO Q6H PRN PRN Reason: Fever/pain Stop: 09/18/21 05:56 Acetaminophen/Codeine Phosphate (Acetaminophen W/Codeine #3 1 Tab) 1 - 2 tab PO Q4H PRN PRN Reason: Moderate-Severe Pain Stop: 09/20/21 15:53 Last Admin: 08/22/21 23:02 Dose: 2 tab Documented by: Cyanocobalamin (Cyanocobalamin (B-12) 500 Mcg Tablet) [facility] Stop: 09/18/21 08:59 Last Admin: 08/23/21 07:32 Dose: 1,000 mcg Documented by: Diclofenac Sodium (Diclofenac Sod 1% Gel 100 Gm Tube) 2 gm EXT BID [facility]; Protocol Stop: 09/18/21 08:59 Last Admin: 08/23/21 07:33 Dose: 2 gm Documented by: Fenofibrate (Fenofibrate Nanocrystallized 48 Mg Tablet) 48 mg PO DAILY [facility] Stop: 09/18/21 08:59 Last Admin: 08/23/21 07:32 Dose: 48 mg Documented by: Promethazine HCl 12.5 mg/ (Sodium Chloride) 50.5 mls @ 202 mls/hr IV Q6H PRN PRN Reason: Nausea And Vomiting Stop: 09/18/21 05:56 Levothyroxine Sodium (Levothyroxine Sodium 100 Mcg Tablet) [facility] Stop: 09/18/21 06:29 Last Admin: 08/23/21 05:54 Dose: 100 mcg Documented by: Lisinopril (Lisinopril 10 Mg Tab) [facility] Stop: 09/21/21 10:44 Last Admin: 08/23/21 07:32 Dose: 10 mg Documented by: Melatonin (Melatonin 3 Mg Tab) 3 mg PO [facility] Stop: 09/18/21 20:59 Last Admin: 08/22/21 20:42 Dose: 3 mg Documented by: Morphine Sulfate (Morphine Sulfate 2 Mg/Ml Carp) 2 mg IV Q3H PRN PRN Reason: Pain Stop: 09/02/21 05:56 Last Admin: 08/19/21 12:18 Dose: 2 mg Documented by: Tramadol HCl (Tramadol Hcl 50 Mg Tablet) 25 - 50 mg PO Q4H PRN PRN Reason: Pain Stop: 09/18/21 05:56 Last Admin: 08/19/21 13:40 Dose: 50 mg Documented by: (1) Syncope Syncope type: unspecified Qualified Code(s): R55 - Syncope and collapse
--- NOTE | 2021-08-24 07:39 | Discharge Summary ---
Date of Service August 23, 2021 Admission HPI Per Admitting Provider History obtained from patient, family, and records. Medical history significant for nonocclusive CAD, COPD, hypertension, hyperlipidemia, hypothyroidism, BPH, prostate cancer status post radiation. Patient woke up after midnight having the urge to move his bowels. Diarrhea symptoms attributed to Belgian food dinner last night. Patient felt nauseous and lightheaded while on the commode. No unusual straining. Subsequent unwitnessed syncopal event. No tongue biting, no urinary incontinence. Thud from patient's room heard by patient's son who was visiting from [place], [place]. Patient found by son on the bathroom floor vomiting. Patient denies headache, belly pain. EMS alerted by son. Patient noted sharp pleuritic pain with some shortness of breath on the way to the hospital. Heart rate 30s and second-degree AV block on EKG at the ER as per ED provider. Medical History as above Outpatient stress echo was done for presyncopal episodes while walking last March 2021. Negative for inducible ischemia. EF 55 to 59%. Concentric LVH. Mild aortic valve sclerosis, mild MR. 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 Admission Exam Per Admitting Provider Physical Exam: GENERAL: Comfortable, slightly anxious, pleasant, no respiratory distress SKIN: Normal color, warm HEENT: Saline palpebral conjunctivae, no ptosis, dry buccal mucosa NECK : Supple, no tenderness CHEST : CTA, no tenderness HEART : Bradycardic, no obvious murmurs ABDOMEN: Some distention, nontender EXTREMITIES : No LE swelling/tenderness, no other conspicuous deformities noted NEUROLOGIC : Coherent, no facial asymmetry, no other gross focality Principal Diagnosis Symptomatic bradycardia status post permanent pacemaker placement, right-sided chest pain which is noncardiac Discharge Exam Lying in bed comfortably Constitutional well developed, well nourished, + ill appearing and + obese Eyes PERRL, conjunctivae normal, anicteric sclerae Neck trachea midline, no thyromegaly Respiratory no respiratory distress Auscultation: lungs clear to auscultation bilaterally Cardiovascular Rate/Rhythm: regular rate, regular rhythm and + bradycardic Heart Sounds: normal S1 and normal S2; no murmur Extremities: no edema Gastrointestinal (Abdomen) Inspection/Auscultation: normal bowel sounds; abdomen not distended Percussion/Palpation: abdomen soft; abdomen nontender Psychiatric A+Ox3, euthymic affect Lymphatic no cervical or axillary lymphadenopathy Discharge Data Allergies Allergy/AdvReac Type Severity Reaction Status Date / Time cephalexin Allergy Severe Swollen Verified 08/19/21 02:29 Lips tamsulosin [From Flomax] Allergy Severe Swollen Verified 08/19/21 02:29 Lip alfuzosin Allergy Unknown LIPS Verified 08/19/21 06:04 SWELLED Consultations 08/19/21 03:51 Consult Cardiology Routine 08/19/21 05:57 Consult Plumbing Mechanic Routine 08/21/21 08:40 Consult Cardiac Electrophysiology Routine Procedures Performed Operation Date: 08/21/21 15:00 Actual Procedures p Pacer with A/V Leads (Dual) - Сергей Lomas MD Ordered Studies 08/19/21 02:18 CT cervical spine wo con Urgent 08/19/21 02:19 CT head/brain wo con Urgent 08/19/21 03:33 CT angio chest PE protocol Urgent 08/21/21 12:00 EP Lab Images for PACS ONCE Hospital Course (1) Symptomatic bradycardia: Remains in sinus bradycardia monitored on telemetry. Rate around 40-50 since last night Asymptomatic at this time. Appreciate cardiology input and recommendation Remains asymptomatic Will have pacemaker implantation sometime today Status post pacemaker placement and the device is checked by the testing and regulating technician today and has been working all right We will get PT and OT evaluation prior to discharge No more bradycardia following pacemaker implantation Will have PT evaluation prior to discharge (2) Syncope: Syncopal event occurred at home after bowel movement during an acute GI illness. Defecation syncope aggravated by bradycardia Will have pacemaker placement tomorrow As above Has been ambulating in the room without any difficulties (3) Chest pain: Chest pain persists with intermittent position changes. There is no chest pain to palpation and no evidence of fracture on chest CTA. Highly sensitive troponin was trended overnight without significant rise and EKG is without ischemic change. Patient also had a nonischemic stress echo in March 2021. There is no evidence of PE on CTA. There is a probable acute nondisplaced horizontal fracture through anterior osteophytes at the T2-T3 level. Pain could be secondary to anterior osteophyte fracture at the level of T2-T3 Has had chest pain on the right side during chest x-ray with low blood pressure Became more right on the floor No more right-sided chest pain and no local tenderness (4) Vomiting and diarrhea: Appears secondary to foodborne illness and is resolved. Patient is tolerating p.o. We will stop IV fluids now. (5) Hypothyroid: Chronic, stable, cont current thyroid replacement per home regimen. (6) Hyperlipidemia: Chronic, stable, continue current therapy. (7) DVT prophylaxis: Lovenox Full code Disposition-plan for continued PCU monitoring pending pacemaker placement then home following procedure Will be discharged home this afternoon Total Time Total Time Spent Total Time Spent (In Minutes): 35 minutes Discharge Plan Discharge Items Patient Disposition: Home - Self-Care Reason For Visit: SYMPTOMATIC BRADYCARDIA Discharge Diagnosis: Symptomatic bradycardia status post permanent pacemaker placement, right-sided chest pain which is noncardiac Condition on Discharge: Fair Activity: Resume your previous activity Non-emergency contact: Primary Care Provider Call non-emergency contact if: you have any medication questions Follow-up/Referrals: Pacemaker wound check [Other] (Date & Time 08/30/2021 2:30 PM Provider Pacer Clinic [facility] Department Cardiology, [facility] ) Clark Funez DO [Epic Interface Analyst] - (Date & Time 09/19/2021 2:00 PM Provider Clark Funez DO Department Cardiology, [facility] ) Tomas Santoyo DO [Primary Care Provider] - (Date & Time 08/29/2021 12:20 PM Provider Renita Lopez PA-C Department Family [facility] ) Diet: Heart Healthy Addtl Attending Provider Instructions: Please take precautions to avoid fall Take some time to initiate any sort of activities Take your medications as advised Please give appointments with your healthcare providers Try Tylenol 2 extra strength p.o. every 8 hours as needed for rightt-sided chest pain ACTIVITY RECOMMENDATIONS: * Do not raise affected arm over head for 2 weeks. SPECIAL CARE INSTRUCTIONS: * If bleeding occurs, apply direct pressure to area for 5 minutes. * Call your doctor if you have severe pain, fever, drainage or bleeding at site. * Keep dressing on and dry for 48 hours then remove. * Keep any scheduled doctor's appointment. * Implant Card - hand held device with website information given. SKIN IRRITATION: * You may experience some redness and/or swelling in the area where radiation was administered. If any skin irritation occurs, please contact your family physician. FOLLOW UP VISIT: Keep any scheduled doctor appointments. Pending Studies at Discharge: No Stand-Alone Forms: My [facility], Smoking Cessation Medications and DC Order Prescriptions: Continued ibuprofen [Motrin IB] 200 mg tablet 400 mg PO BID PRN (Reason: pain) RF: 0 melatonin 3 mg Tablet 3 mg PO HS RF: 0 cholecalciferol (vitamin D3) [Vitamin D3] 1,000 unit Capsule 2,000 unit PO QAM RF: 0 coenzyme Q10 [CoQ-10] 100 mg Capsule 100 mg PO QAM RF: 0 ramipril 10 mg capsule 10 mg PO QAM RF: 0 cyanocobalamin (vitamin B-12) [Vitamin B-12] 1,000 mcg tablet 1,000 mcg PO QAM RF: 0 levothyroxine 100 mcg tablet 100 mcg PO DAILYBB RF: 0 fenofibrate nanocrystallized 48 mg tablet 48 mg PO DAILY RF: 0 triamcinolone acetonide 0.1 % Cream 1 applic TOPICAL BID PRN (Reason: as directed) RF: 0 phenazopyridine 95 mg Tablet 95 mg PO UD RF: 0 magnesium 100 mg Tablet 100 mg PO DAILY RF: 0 albuterol sulfate 90 mcg/actuation Hfa Aerosol Inhaler 2 puff INHALATION Q4 PRN (Reason: Shortness Of Breath Or Wheezing) RF: 0 diclofenac sodium 1 % Gel 2 g TOPICAL BID RF: 0 turmeric root extract 1,053 mg Tablet 1,076 mg PO DAILY RF: 0 Discharge Orders: Discharge Order (Routine); Ordered 08/23/21 Ordered By: Mark Ingram/Other Patient Handouts: A1C Admission Data Admit Date/Time: 08/19/21 03:46 Attending Provider: Mark King Admit Provider: Heber Oseguera Primary Care Provider: Tomas Santoyo Other Providers: Clark Funez ; Haider Saxena ; Deo Fraga ; Orion Figueroa ; Mendoza Thompson ; Bogdan Church ; Nadeem Montes ; Cathy Acuna ; Royal Gonzalez ; Mariam Dean ; Torie Ibarra ; Сергей Lomas Other Interventions: Discharge Summary Assessment (RN) Last Done: 08/23/21 15:51
== END 2021-08-23 16:18 | disposition home or self-care (01) | DRG 243 ==
LOC: ED 01:59 → SUATTDRO 03:46 → 1E 03:46 → 2S 11:29